=== PATIENT | male | born 1945 | race African-American/Black ===

== ENCOUNTER 2018-03-20 07:17 | Inpatient (IN) ==
[2018-03-20] MEDS ORDERED: GLUCAGON 1 MG VIAL IM PRN (09:49)
[2018-03-20] MEDS ORDERED: DEXTROSE 50% 25 GM/50 ML VIAL IV PRN (09:49)
[2018-03-20] MEDS ORDERED: HYDROcod/ACETAMIN 7.5-325 MG/15 ML UDCUP PO SCH (10:00)
[2018-03-20] MEDS: SODIUM CHLORIDE 0.9% 1,000 ML IV SCH (10:30)
[2018-03-20] MEDS ORDERED: HYDROcod/ACETAMIN 7.5-325 MG/15 ML UDCUP PO PRN (13:39)
[2018-03-20] MEDS ORDERED: INSULIN REGULAR 100 UNIT/ML ONE (21:26)
[2018-03-20] MEDS: INSULIN REGULAR 100 UNIT/ML SUBCUT SCH (21:31)
[2018-03-20] MEDS: CHLORHEXIDINE 0.12% ORAL RINSE 60 ML BOTTLE SWISH/SPIT SCH (22:12)
[2018-03-21 03:34] LABS: ABG Base Excess 3.7 MMOL/L (-2.5-2.5); ABG HCO3 27.7 MMOL/L (20-26); ABG Oxygen Saturation 98.1 % (95-100); ABG PCO2 42.8 MM HG (35-48); ABG PH 7.431 (7.35-7.45); ABG TCO2 24.8 MMOL/L (23-27); Allen Test Positive
[2018-03-21 04:34] LABS: Basophils % 0.3 % (0.0-0.8); Eosinophils # 0.1 10*3/uL (0.0-0.87); Eosinophils % 0.9 % (0.00-10.9); Hematocrit 38.7 VOL% (42.0-52.0); Hemoglobin 12.5 GM/DL (14.0-18.0); Immature Granulocytes % 0.2 %; Immature Granulocytes Absolute 0.02 #; Lymphocytes # 3.9 10*3/uL (1.4-4.0); Lymphocytes % 45.4 % (21.2-54.2); Mean Corpuscular HGB Conc 32.3 GM/DL (32-36); Mean Corpuscular Hemoglobin 30 PG (27-34); Mean Corpuscular Volume 93.7 FL (87-102); Mean Platelet Volume 12.1 FL (9.6-12.0); Monocytes # 0.7 10*3/uL (0.11-0.8); Monocytes % 7.6 % (1.7-12.7); Neutrophils # 3.9 10*3/uL (1.4-7.4); Neutrophils % 45.6 % (38.7-73.9); Platelet Count 171 T/CUMM (130-400); Red Blood Count 4.13 MC/CUMM (3.8-5.5); Red Cell Distribution Width 13.9 % (9.3-17.3); White Blood Count 8.7 T/CUMM (4-12)
[2018-03-21 04:52] LABS: Albumin 2.5 G/DL (3.4-5.0); Bilirubin,Total 0.9 MG/DL (0.2-1.0); Calcium 8.4 MG/DL (8.5-10.1); Osmolality,Calculated 279.7 MOS/KG (273-304); Potassium 3.6 MMOL/L (3.5-5.1); Total Protein 6.6 G/DL (6.4-8.3)
[2018-03-21] MEDS: INSULIN REGULAR 100 UNIT/ML SUBCUT SCH ×4 (08:45→22:06)
[2018-03-21] MEDS: ASPIRIN EC 325 MG TABLET PO SCH (08:46)
[2018-03-21] MEDS: GLIMEPIRIDE 4 MG TABLET PO SCH (08:46)
[2018-03-21] MEDS: VERAPAMIL 120 MG TABLET PO SCH (08:46)
[2018-03-21] MEDS: CHLORHEXIDINE 0.12% ORAL RINSE 60 ML BOTTLE SWISH/SPIT SCH ×2 (08:46→22:07)
[2018-03-21] MEDS: ATENOLOL 25 MG TABLET PO SCH (08:46)
[2018-03-21] MEDS: ATORVASTATIN 40 MG TABLET PO SCH (08:46)
[2018-03-21] MEDS: SODIUM CHLORIDE 0.9% 1,000 ML IV SCH (11:04)
[2018-03-21] MEDS ORDERED: LACTULOSE 20 GM/30 ML UDCUP PO PRN (15:33)
[2018-03-22] MEDS: INSULIN REGULAR 100 UNIT/ML SUBCUT SCH ×4 (08:33→21:51)
[2018-03-22] MEDS: ASPIRIN EC 325 MG TABLET PO SCH (08:38)
[2018-03-22] MEDS: CHLORHEXIDINE 0.12% ORAL RINSE 60 ML BOTTLE SWISH/SPIT SCH ×2 (08:38→21:51)
[2018-03-22] MEDS: ATENOLOL 25 MG TABLET PO SCH (08:38)
[2018-03-22] MEDS: GLIMEPIRIDE 4 MG TABLET PO SCH (08:38)
[2018-03-22] MEDS: VERAPAMIL 120 MG TABLET PO SCH (08:38)
[2018-03-22] MEDS: ATORVASTATIN 40 MG TABLET PO SCH (08:38)
[2018-03-22] MEDS ORDERED: CEFUROXIME INJ 1,500 MG in SYRINGE 1 EACH IV ONE (09:49)
[2018-03-22] MEDS: SODIUM CHLORIDE 0.9% 1,000 ML IV SCH (11:17)
[2018-03-22] MEDS: CHLORHEXIDINE 4% SOLN 118 ML BOTTLE TOP SCH ×2 (14:31→21:51)
[2018-03-23] MEDS ORDERED: PAPAVERINE 60 MG/2 ML VIAL ONE (04:21)
[2018-03-23] MEDS ORDERED: VANCOMYCIN 1,000 MG VIAL ONE (04:21)
[2018-03-23] MEDS ORDERED: PANTOPRAZOLE 40 MG VIAL IV ONE (05:00)
[2018-03-23] MEDS ORDERED: DIAZEPAM 5 MG TABLET PO ONE (05:00)
[2018-03-23] MEDS ORDERED: CEFUROXIME INJ 1,500 MG in SYRINGE 1 EACH IV ONE (05:00)
[2018-03-23] MEDS ORDERED: SUFentanil 250 MCG/5 ML AMP ONE (05:39)
[2018-03-23] MEDS ORDERED: MIDAZOLAM 10 MG/2 ML VIAL ONE (05:40)
[2018-03-23 07:46] LABS: ABG Base Excess 0.8 MMOL/L (-2.5-2.5); ABG HCO3 25.1 MMOL/L (20-26); ABG Oxygen Saturation 96.6 % (95-100); ABG PCO2 40.2 MM HG (35-48); ABG PH 7.409 (7.35-7.45); ABG PO2 90.3 MM HG (80-95); ABG TCO2 22.5 MMOL/L (23-27); Glucose Heart Surgery 185 MG/DL (74-106); Hematocrit Heart Surgery 37.4 PERCENT (42-52); Hemoglobin Heart Surgery 12.2 G/DL (14.0-18.0); Ionized Calcium Arterial 1.13 MMOL/L (1.21-1.46); PCO2 Patient Temp Arterial 40.2 MMHG; PH Patient Temp Arterial 7.409; PO2 Patient Temp Arterial 90.3 MM HG; Patient Temperature 37 CELCIUS; Sodium Heart/CVR 135 MMOL/L (135-145)
[2018-03-23 08:03] LABS: Apearance,Urine CLEAR (Clear); Bilirubin,Urine Negative (Negative); Blood, Urine Moderate mg/dL (Negative); Glucose,Urine (UA) Negative (Negative); Ketones,Urine Negative (Negative); Nitrite,Urine Negative (Negative); Protein,Urine Negative; RBC,Urine 7 /HPF (0-4); Urine Color Yellow (Yellow); Urine Specific Gravity 1.009 (1.001-1.035); Urine Urobilinogen < 2.0 EU/DL (0.2-1.0); WBC,Urine <1 /HPF (0-6)
[2018-03-23] MEDS ORDERED: EPINEPHrine 1 MG/10 ML SYRINGE ONE (08:35)
[2018-03-23] MEDS ORDERED: CALCIUM CHLORIDE 1,000 MG/10 ML SYRINGE IV ONE (08:35)
[2018-03-23] MEDS ORDERED: PHENYLEPHRINE DRIP 40 MG/250 ML PREMIX IV ONE (08:35)
[2018-03-23] MEDS ORDERED: ALBUMIN 5% 12.5 GM/250 ML VIAL IV ONE (08:35)
[2018-03-23] MEDS ORDERED: ATROPINE 1 MG/10 ML SYRINGE ONE (08:36)
[2018-03-23] MEDS ORDERED: POTASSIUM CHLORIDE RIDER 100 ML IV ONE (08:36)
[2018-03-23 09:14] LABS: Hematocrit Heart Surgery 29.1 PERCENT (42-52); Hemoglobin Heart Surgery 9.4 G/DL (14.0-18.0); PCO2 Patient Temp Venous 35.3 MM HG; PH Patient Temp Venous 7.471; PO2 Patient Temp Venous 40.1 MM HG; Potassium Heart/CVR 5.1 MMOL/L (3.5-5.1); VBG Base Excess 2.3 MEQ/L (0-4); VBG HCO3 26.2 MEQ/L (24-28); VBG Oxygen Saturation 81.8 %; VBG PCO2 38.9 MMHG (41-51); VBG PH 7.441; VBG PO2 46.1 MMHG (17-40)
[2018-03-23 09:45] LABS: Hematocrit Heart Surgery 30.5 PERCENT (42-52); Hemoglobin Heart Surgery 9.8 G/DL (14.0-18.0); PCO2 Patient Temp Venous 28.7 MM HG; PH Patient Temp Venous 7.543; PO2 Patient Temp Venous 39.4 MM HG; Potassium Heart/CVR 4.5 MMOL/L (3.5-5.1); VBG Base Excess 2.8 MEQ/L (0-4); VBG HCO3 26.7 MEQ/L (24-28); VBG Oxygen Saturation 86.8 %; VBG PCO2 33.1 MMHG (41-51); VBG PH 7.498; VBG PO2 48.5 MMHG (17-40)
[2018-03-23 10:21] LABS: Hematocrit Heart Surgery 29.3 PERCENT (42-52); Hemoglobin Heart Surgery 9.5 G/DL (14.0-18.0); PH Patient Temp Venous 7.533; PO2 Patient Temp Venous 35.3 MM HG; VBG Base Excess 2.3 MEQ/L (0-4); VBG HCO3 26.1 MEQ/L (24-28); VBG PCO2 31.9 MMHG (41-51); VBG PH 7.503; VBG PO2 40.7 MMHG (17-40)
[2018-03-23 10:44] LABS: Hematocrit Heart Surgery 29.6 PERCENT (42-52); Hemoglobin Heart Surgery 9.5 G/DL (14.0-18.0); PCO2 Patient Temp Venous 29.7 MM HG; PH Patient Temp Venous 7.525; PO2 Patient Temp Venous 40.3 MM HG; Potassium Heart/CVR 4.6 MMOL/L (3.5-5.1); VBG Base Excess 2.2 MEQ/L (0-4); VBG HCO3 26.1 MEQ/L (24-28); VBG Oxygen Saturation 79.2 %; VBG PCO2 29.7 MMHG (41-51); VBG PH 7.525; VBG PO2 40.3 MMHG (17-40)
[2018-03-23] MEDS ORDERED: THROMBIN TOPICAL (RECOMBINANT) 5,000 UNIT VIAL TOP ONE ×2 (10:48→12:00)
[2018-03-23 11:15] LABS: Hematocrit Heart Surgery 27.9 PERCENT (42-52); PCO2 Patient Temp Venous 31.3 MM HG; PH Patient Temp Venous 7.507; PO2 Patient Temp Venous 26.4 MM HG; Potassium Heart/CVR 4.7 MMOL/L (3.5-5.1); VBG Base Excess 2.1 MEQ/L (0-4); VBG HCO3 25.6 MEQ/L (24-28); VBG Oxygen Saturation 51.1 %; VBG PCO2 31.3 MMHG (41-51); VBG PH 7.507; VBG PO2 26.4 MMHG (17-40)
[2018-03-23 11:26] LABS: ABG Base Excess 0.4 MMOL/L (-2.5-2.5); ABG HCO3 24.8 MMOL/L (20-26); ABG PCO2 27.7 MM HG (35-48); ABG TCO2 20.6 MMOL/L (23-27); Glucose Heart Surgery 298 MG/DL (74-106); Hematocrit Heart Surgery 28.6 PERCENT (42-52); Hemoglobin Heart Surgery 9.2 G/DL (14.0-18.0); Ionized Calcium Arterial 1.13 MMOL/L (1.21-1.46); PCO2 Patient Temp Arterial 27.7 MMHG; Patient Temperature 37 CELCIUS; Potassium Heart/CVR 4.4 MMOL/L (3.5-5.1); Sodium Heart/CVR 133 MMOL/L (135-145)
[2018-03-23] MEDS ORDERED: MANNITOL 100 GM/500 ML BAG IV ONE (11:35)
[2018-03-23] MEDS ORDERED: ALBUMIN 25% 25 GM/100 ML VIAL IV ONE (11:36)
[2018-03-23] MEDS ORDERED: SODIUM BICARBONATE 50 MEQ/50 ML SYRINGE IV ONE (11:36)
[2018-03-23] MEDS ORDERED: methylPREDNISolone SOD SUC 1,000 MG/8 ML VIAL ONE (11:36)
[2018-03-23] MEDS ORDERED: MAGNESIUM SULFATE 10 GM/20 ML VIAL IV ONE (11:36)
[2018-03-23] MEDS ORDERED: HEPARIN 10,000 UNIT/10 ML VIAL ONE (11:36)
[2018-03-23] MEDS ORDERED: POTASSIUM CHLORIDE 20 MEQ/10 ML VIAL ONE (11:36)
[2018-03-23] MEDS ORDERED: DEXTROSE 5% KCL 20 MEQ 20 MEQ/1,000 ML BAG IV ONE (11:36)
[2018-03-23] MEDS ORDERED: PROTAMINE SULFATE 250 MG/25 ML VIAL IV ONE ×2 (11:36→13:20)
[2018-03-23] MEDS ORDERED: FUROSEMIDE 20 MG/2 ML VIAL ONE (11:36)
[2018-03-23 11:49] LABS: ABG Base Excess -0.3 MMOL/L (-2.5-2.5); ABG HCO3 24.2 MMOL/L (20-26); ABG Oxygen Saturation 98.5 % (95-100); ABG PCO2 38.5 MM HG (35-48); ABG PH 7.406 (7.35-7.45); ABG TCO2 22.1 MMOL/L (23-27); Glucose Heart Surgery 292 MG/DL (74-106); Hematocrit Heart Surgery 29.4 PERCENT (42-52); Hemoglobin Heart Surgery 9.5 G/DL (14.0-18.0); Ionized Calcium Arterial 1.04 MMOL/L (1.21-1.46); PCO2 Patient Temp Arterial 38.5 MMHG; PH Patient Temp Arterial 7.406; Patient Temperature 37 CELCIUS; Potassium Heart/CVR 3.8 MMOL/L (3.5-5.1); Sodium Heart/CVR 134 MMOL/L (135-145)
[2018-03-23] MEDS ORDERED: NITROGLYCERIN DRIP 50 MG/250 ML BOTTLE IV ONE ×2 (12:20→13:21)
[2018-03-23] MEDS ORDERED: DOBUTamine 500 MG/250 ML PREMIX IV ONE ×2 (12:20→13:20)
[2018-03-23] MEDS ORDERED: INSULIN REGULAR 100 UNIT/ML IV ONE (12:54)
[2018-03-23] MEDS ORDERED: ACETAMINOPHEN 650 MG SUPP RECTAL PRN (12:54)
[2018-03-23] MEDS ORDERED: CALCIUM CHLORIDE 1,000 MG/10 ML SYRINGE IV PRN (12:54)
[2018-03-23] MEDS ORDERED: DEXTROSE 50% 25 GM/50 ML SYRINGE IV PRN ×2 (12:54)
[2018-03-23] MEDS ORDERED: MAGNESIUM SULF RIDER 2 GM in PREMIX 1 EACH IV PRN (12:54)
[2018-03-23] MEDS ORDERED: LACTATED RINGERS 250 ML IV PRN (12:54)
[2018-03-23] MEDS ORDERED: MIDAZOLAM 10 MG/2 ML VIAL IV PRN (12:54)
[2018-03-23] MEDS ORDERED: PHENYLEPHRINE DRIP 40 MG/250 ML PREMIX IV PRN (12:54)
[2018-03-23] MEDS ORDERED: NITROPRUSSIDE 100 MG in DEXTROSE 5% 250 ML IV PRN (12:54)
[2018-03-23] MEDS ORDERED: ONDANSETRON 4 MG/2 ML VIAL IV PRN (12:54)
[2018-03-23] MEDS ORDERED: INSULIN REGULAR 100 UNIT/ML IV PRN (12:54)
[2018-03-23] MEDS ORDERED: VECURONIUM 10 MG VIAL IV PRN ×2 (12:54)
[2018-03-23] MEDS ORDERED: MORPHINE 4 MG/1 ML VIAL IV PRN (12:54)
[2018-03-23] MEDS ORDERED: MAGNESIUM SULF RIDER 4 GM in PREMIX 1 EACH IV PRN (12:54)
[2018-03-23] MEDS: INSULIN REGULAR DRIP 100 ML IV SCH (13:00)
[2018-03-23] MEDS ORDERED: DOBUTamine 500 MG/250 ML PREMIX IV PRN (13:00)
[2018-03-23] MEDS: NITROGLYCERIN DRIP 50 MG/250 ML BOTTLE IV PRN (13:00)
[2018-03-23] MEDS: SODIUM CHLORIDE 0.45% 1,000 ML IV SCH ×2 (13:00)
[2018-03-23] MEDS ORDERED: HEPARIN/NACL 0.9% 2 UNITS/ML 500 ML IV ONE (13:20)
[2018-03-23] MEDS ORDERED: SEVOFLURANE 1 UNIT/15 MINUTE INH ONE (13:20)
[2018-03-23] MEDS ORDERED: CALCIUM CHLORIDE 1,000 MG/10 ML VIAL IV ONE (13:20)
[2018-03-23] MEDS ORDERED: PHENYLEPHRINE DRIP 20 MG/250 ML PREMIX IV ONE (13:20)
[2018-03-23] MEDS ORDERED: VECURONIUM 10 MG VIAL IV ONE (13:21)
[2018-03-23] MEDS ORDERED: AMINOCAPROIC ACID 5,000 MG/20 ML VIAL ONE (13:21)
[2018-03-23] MEDS ORDERED: ETOMIDATE 40 MG/20 ML VIAL IV ONE (13:21)
[2018-03-23] MEDS ORDERED: MIDAZOLAM 2 MG/2 ML VIAL ONE (13:21)
[2018-03-23] MEDS ORDERED: LACTATED RINGERS 1,000 ML IV ONE (13:22)
[2018-03-23] MEDS ORDERED: PHENYLEPHRINE 1 MG/10 ML SYRINGE IV ONE (13:22)
[2018-03-23] MEDS ORDERED: SODIUM CHLORIDE 0.9% 1,000 ML IV ONE (13:22)
[2018-03-23 13:29] LABS: Basophils % 0.1 % (0.0-0.8); Eosinophils % 0.1 % (0.00-10.9); Hematocrit 25.7 VOL% (42.0-52.0); Hemoglobin 8.5 GM/DL (14.0-18.0); Immature Granulocytes % 0.5 %; Immature Granulocytes Absolute 0.05 #; Lymphocytes # 0.7 10*3/uL (1.4-4.0); Lymphocytes % 7.6 % (21.2-54.2); Mean Corpuscular HGB Conc 33.1 GM/DL (32-36); Mean Corpuscular Hemoglobin 32 PG (27-34); Mean Corpuscular Volume 95.2 FL (87-102); Mean Platelet Volume 11.6 FL (9.6-12.0); Monocytes # 0.3 10*3/uL (0.11-0.8); Neutrophils # 8.2 10*3/uL (1.4-7.4); Neutrophils % 88.7 % (38.7-73.9); Platelet Count 179 T/CUMM (130-400); Red Cell Distribution Width 13.9 % (9.3-17.3); White Blood Count 9.2 T/CUMM (4-12)
[2018-03-23 13:31] LABS: ABG Base Excess 0.1 MMOL/L (-2.5-2.5); ABG HCO3 24.5 MMOL/L (20-26); ABG Oxygen Saturation 96.1 % (95-100); ABG PCO2 42.2 MM HG (35-48); ABG PH 7.385 (7.35-7.45); ABG PO2 86.7 MM HG (80-95); ABG TCO2 22.8 MMOL/L (23-27); Glucose Heart Surgery 295 MG/DL (74-106); Hematocrit Heart Surgery 32.6 PERCENT (42-52); Hemoglobin Heart Surgery 10.6 G/DL (14.0-18.0); Potassium Heart/CVR 4.2 MMOL/L (3.5-5.1)
[2018-03-23 13:41] LABS: INR 1.1; PT Patient Result 11.5 SECS; Partial Thromboplastin Time 28.4 SECS (0-40)
[2018-03-23 13:57] LABS: Albumin 2.7 G/DL (3.4-5.0); Calcium 8.3 MG/DL (8.5-10.1); Osmolality,Calculated 288.5 MOS/KG (273-304); Potassium 4.4 MMOL/L (3.5-5.1); Total Protein 5.4 G/DL (6.4-8.3)
[2018-03-23] MEDS: KETOROLAC 30 MG/1 ML VIAL IV SCH ×2 (13:58→18:25)
[2018-03-23] MEDS: ALBUMIN 5% 12.5 GM in PREMIX 1 EACH IV PRN ×3 (14:00→19:32)
[2018-03-23] MEDS: MIDAZOLAM 2 MG/2 ML VIAL IV PRN ×2 (14:01→23:07)
[2018-03-23 14:32] LABS: CKMB % 4.4 %
[2018-03-23 14:36] LABS: ABG Base Excess -0.2 MMOL/L (-2.5-2.5); ABG HCO3 24.8 MMOL/L (20-26); ABG Oxygen Saturation 97.9 % (95-100); ABG PCO2 41.9 MM HG (35-48); ABG PO2 120.8 MM HG (80-95); ABG TCO2 26.1 MMOL/L (23-27); Glucose Heart Surgery 247 MG/DL (74-106); Hemoglobin Heart Surgery 8.7 G/DL (14.0-18.0); Potassium Heart/CVR 3.7 MMOL/L (3.5-5.1)
[2018-03-23 14:45] LABS: Troponin I 4.33 NG/ML (0.00-0.045)
[2018-03-23 15:26] LABS: ABG Base Excess -0.3 MMOL/L (-2.5-2.5); ABG HCO3 24.2 MMOL/L (20-26); ABG Oxygen Saturation 99.1 % (95-100); ABG PCO2 42.3 MM HG (35-48); ABG PH 7.376 (7.35-7.45); ABG TCO2 23.4 MMOL/L (23-27); Glucose Heart Surgery 241 MG/DL (74-106); Hematocrit Heart Surgery 23.2 PERCENT (42-52); Hemoglobin Heart Surgery 7.4 G/DL (14.0-18.0); Potassium Heart/CVR 3.8 MMOL/L (3.5-5.1)
[2018-03-23] MEDS: POTASSIUM CHLORIDE RIDER 20 MEQ in PREMIX 1 EACH IV PRN (15:30)
[2018-03-23] MEDS ORDERED: PROTAMINE SULFATE 50 MG/5 ML VIAL IV ONE ×2 (16:09→16:10)
[2018-03-23] MEDS: POTASSIUM CHLORIDE RIDER 10 MEQ in PREMIX 1 EACH IV PRN (16:40)
[2018-03-23] MEDS ORDERED: PROPOFOL 1,000 MG/100 ML BOTTLE IV ONE (16:52)
[2018-03-23] MEDS: PROPOFOL 1,000 MG/100 ML BOTTLE IV SCH (17:00)
[2018-03-23 18:22] LABS: ABG Base Excess 0.3 MMOL/L (-2.5-2.5); ABG HCO3 24.7 MMOL/L (20-26); ABG Oxygen Saturation 98.3 % (95-100); ABG PCO2 41.4 MM HG (35-48); ABG PH 7.393 (7.35-7.45); ABG TCO2 22.8 MMOL/L (23-27); Glucose Heart Surgery 162 MG/DL (74-106); Hematocrit Heart Surgery 32.6 PERCENT (42-52); Hemoglobin Heart Surgery 10.6 G/DL (14.0-18.0); Potassium Heart/CVR 4.3 MMOL/L (3.5-5.1)
[2018-03-23 20:01] LABS: ABG Base Excess 1.3 MMOL/L (-2.5-2.5); ABG HCO3 25.6 MMOL/L (20-26); ABG Oxygen Saturation 97.5 % (95-100); ABG PCO2 41.8 MM HG (35-48); ABG PH 7.404 (7.35-7.45); ABG PO2 92.4 MM HG (80-95); Glucose Heart Surgery 109 MG/DL (74-106); Hematocrit Heart Surgery 28.8 PERCENT (42-52); Hemoglobin Heart Surgery 9.3 G/DL (14.0-18.0); Potassium Heart/CVR 4.2 MMOL/L (3.5-5.1)
[2018-03-23 20:48] LABS: CKMB % 3.7 %
[2018-03-23 20:50] LABS: Troponin I 3.92 NG/ML (0.00-0.045)
[2018-03-23 21:47] LABS: ABG Base Excess 1.1 MMOL/L (-2.5-2.5); ABG HCO3 25.4 MMOL/L (20-26); ABG Oxygen Saturation 96.1 % (95-100); ABG PCO2 40.7 MM HG (35-48); ABG PO2 79.3 MM HG (80-95); ABG TCO2 23.4 MMOL/L (23-27); Glucose Heart Surgery 159 MG/DL (74-106); Hematocrit Heart Surgery 31.8 PERCENT (42-52); Hemoglobin Heart Surgery 10.3 G/DL (14.0-18.0); Potassium Heart/CVR 4.5 MMOL/L (3.5-5.1)
[2018-03-23] MEDS ORDERED: FUROSEMIDE 40 MG/4 ML VIAL IV ONE (22:02)
[2018-03-23] MEDS: CHLORHEXIDINE 0.12% ORAL RINSE 60 ML BOTTLE SWISH/SPIT SCH (22:20)
[2018-03-23] MEDS: CEFUROXIME INJ 1,500 MG in SYRINGE 1 EACH IV SCH (22:21)
[2018-03-23 22:50] LABS: ABG Base Excess 1.1 MMOL/L (-2.5-2.5); ABG HCO3 25.4 MMOL/L (20-26); ABG Oxygen Saturation 95.6 % (95-100); ABG PCO2 41.5 MM HG (35-48); ABG PH 7.404 (7.35-7.45); ABG TCO2 23.5 MMOL/L (23-27); Glucose Heart Surgery 167 MG/DL (74-106); Hematocrit Heart Surgery 31.9 PERCENT (42-52); Hemoglobin Heart Surgery 10.3 G/DL (14.0-18.0); Potassium Heart/CVR 4.2 MMOL/L (3.5-5.1)
[2018-03-23] MEDS: ALBUTEROL/IPRATROPIUM 3 ML NEB RESP TX SCH (22:58)
[2018-03-23 23:58] LABS: ABG Base Excess 2.6 MMOL/L (-2.5-2.5); ABG HCO3 26.7 MMOL/L (20-26); ABG Oxygen Saturation 98.3 % (95-100); ABG PCO2 38.9 MM HG (35-48); ABG PH 7.445 (7.35-7.45); ABG TCO2 24.3 MMOL/L (23-27); Glucose Heart Surgery 164 MG/DL (74-106); Hematocrit Heart Surgery 30.3 PERCENT (42-52); Hemoglobin Heart Surgery 9.8 G/DL (14.0-18.0); Potassium Heart/CVR 3.9 MMOL/L (3.5-5.1)
[2018-03-24] MEDS ORDERED: FUROSEMIDE 40 MG/4 ML VIAL IV ONE ×3 (00:01→15:34)
[2018-03-24] MEDS: POTASSIUM CHLORIDE RIDER 20 MEQ in PREMIX 1 EACH IV PRN ×2 (00:08→08:23)
[2018-03-24] MEDS: MORPHINE 10 MG/1 ML VIAL IV PRN ×3 (00:32→13:45)
[2018-03-24] MEDS: KETOROLAC 30 MG/1 ML VIAL IV SCH ×4 (00:34→21:19)
[2018-03-24] MEDS: POTASSIUM CHLORIDE RIDER 10 MEQ in PREMIX 1 EACH IV PRN (00:39)
[2018-03-24] MEDS: ALBUMIN 5% 12.5 GM in PREMIX 1 EACH IV PRN ×2 (01:17→03:50)
[2018-03-24] MEDS ORDERED: NITROPRUSSIDE 50 MG/2 ML VIAL ONE ×2 (01:50→01:51)
[2018-03-24] MEDS: PROPOFOL 1,000 MG/100 ML BOTTLE IV SCH ×2 (02:01→09:40)
[2018-03-24 02:03] LABS: ABG HCO3 26.2 MMOL/L (20-26); ABG Oxygen Saturation 99.1 % (95-100); ABG PCO2 40.7 MM HG (35-48); ABG PH 7.423 (7.35-7.45); ABG TCO2 24.2 MMOL/L (23-27); Glucose Heart Surgery 124 MG/DL (74-106); Hemoglobin Heart Surgery 9.7 G/DL (14.0-18.0); Potassium Heart/CVR 4.1 MMOL/L (3.5-5.1)
[2018-03-24] MEDS: ALBUTEROL/IPRATROPIUM 3 ML NEB RESP TX SCH ×6 (03:10→22:40)
[2018-03-24 03:51] LABS: ABG Base Excess 1.7 MMOL/L (-2.5-2.5); ABG HCO3 25.1 MMOL/L (20-26); ABG Oxygen Saturation 98.1 % (95-100); ABG PCO2 34.5 MM HG (35-48); ABG PH 7.479 (7.35-7.45); ABG PO2 135.4 MM HG (80-95); ABG TCO2 26.1 MMOL/L (23-27); Glucose Heart Surgery 76 MG/DL (74-106); Hemoglobin Heart Surgery 9.4 G/DL (14.0-18.0); Potassium Heart/CVR 4.1 MMOL/L (3.5-5.1)
[2018-03-24 04:03] LABS: Basophils % 0.1 % (0.0-0.8); Hematocrit 26.2 VOL% (42.0-52.0); Hemoglobin 8.6 GM/DL (14.0-18.0); Immature Granulocytes % 0.6 %; Immature Granulocytes Absolute 0.05 #; Lymphocytes # 0.7 10*3/uL (1.4-4.0); Lymphocytes % 7.7 % (21.2-54.2); Mean Corpuscular HGB Conc 32.8 GM/DL (32-36); Mean Corpuscular Hemoglobin 30 PG (27-34); Monocytes # 0.6 10*3/uL (0.11-0.8); Monocytes % 7.1 % (1.7-12.7); Neutrophils # 7.3 10*3/uL (1.4-7.4); Neutrophils % 84.5 % (38.7-73.9); Platelet Count 134 T/CUMM (130-400); Red Blood Count 2.91 MC/CUMM (3.8-5.5); Red Cell Distribution Width 17.2 % (9.3-17.3); White Blood Count 8.6 T/CUMM (4-12)
[2018-03-24 04:28] LABS: Albumin 2.9 G/DL (3.4-5.0); Bilirubin,Direct 0.15 MG/DL (0.0-0.20); Bilirubin,Total 0.6 MG/DL (0.2-1.0); Calcium 7.8 MG/DL (8.5-10.1); Osmolality,Calculated 283.1 MOS/KG (273-304); Potassium 4.2 MMOL/L (3.5-5.1); Total Protein 5.5 G/DL (6.4-8.3)
[2018-03-24 04:30] LABS: CKMB % 5.3 %
[2018-03-24 04:45] LABS: Troponin I 6.45 NG/ML (0.00-0.045)
[2018-03-24 08:02] LABS: ABG Base Excess 0.7 MMOL/L (-2.5-2.5); ABG HCO3 25.1 MMOL/L (20-26); ABG PCO2 38.9 MM HG (35-48); ABG PH 7.418 (7.35-7.45); ABG TCO2 22.8 MMOL/L (23-27); Glucose Heart Surgery 147 MG/DL (74-106); Hematocrit Heart Surgery 30.8 PERCENT (42-52)
[2018-03-24] MEDS: CEFUROXIME INJ 1,500 MG in SYRINGE 1 EACH IV SCH ×2 (08:04→21:20)
[2018-03-24] MEDS: CHLORHEXIDINE 0.12% ORAL RINSE 60 ML BOTTLE SWISH/SPIT SCH ×3 (08:59→21:20)
[2018-03-24 11:46] LABS: ABG Base Excess 0.3 MMOL/L (-2.5-2.5); ABG HCO3 24.7 MMOL/L (20-26); ABG PCO2 43.4 MM HG (35-48); ABG PH 7.379 (7.35-7.45); ABG TCO2 23.3 MMOL/L (23-27); Glucose Heart Surgery 152 MG/DL (74-106); Hematocrit Heart Surgery 31.1 PERCENT (42-52); Potassium Heart/CVR 4.3 MMOL/L (3.5-5.1)
[2018-03-24 14:13] LABS: CKMB % 5.8 %
[2018-03-24 14:16] LABS: Troponin I 8.2 NG/ML (0.00-0.045)
[2018-03-24] MEDS: INSULIN REGULAR DRIP 100 ML IV SCH (14:17)
[2018-03-24] MEDS: SODIUM CHLORIDE 0.45% 1,000 ML IV SCH ×2 (14:18)
[2018-03-24 15:07] LABS: ABG Base Excess 0.9 MMOL/L (-2.5-2.5); ABG HCO3 25.7 MMOL/L (20-26); ABG Oxygen Saturation 91.4 % (95-100); ABG PCO2 41.5 MM HG (35-48); ABG PH 7.409 (7.35-7.45); ABG PO2 65.5 MM HG (80-95); ABG TCO2 26.9 MMOL/L (23-27); Glucose Heart Surgery 168 MG/DL (74-106); Hemoglobin Heart Surgery 11.6 G/DL (14.0-18.0); Potassium Heart/CVR 4.3 MMOL/L (3.5-5.1)
[2018-03-24] MEDS: INSULIN REGULAR 100 UNIT/ML SUBCUT SCH ×4 (16:10→21:20)
[2018-03-24] MEDS: SODIUM CHLORIDE 0.9% 1,000 ML IV SCH (16:29)
[2018-03-24] MEDS: ATENOLOL 25 MG TABLET PO SCH (16:29)
[2018-03-24] MEDS: ATORVASTATIN 40 MG TABLET PO SCH (16:30)
[2018-03-24] MEDS: VERAPAMIL 120 MG TABLET PO SCH (16:30)
[2018-03-24] MEDS: GLIMEPIRIDE 4 MG TABLET PO SCH (16:30)
[2018-03-24] MEDS: CHLORHEXIDINE 4% SOLN 118 ML BOTTLE TOP SCH (16:30)
[2018-03-24] MEDS: ASPIRIN EC 325 MG TABLET PO SCH (16:30)
[2018-03-24] MEDS: cloNIDine 0.1 MG TABLET PO SCH (21:20)
[2018-03-25] MEDS: INSULIN REGULAR 100 UNIT/ML SUBCUT SCH ×6 (00:18→20:17)
[2018-03-25] MEDS: ALBUTEROL/IPRATROPIUM 3 ML NEB RESP TX SCH ×6 (02:29→23:52)
[2018-03-25] MEDS: SODIUM CHLORIDE 0.45% 1,000 ML IV SCH ×4 (02:35→14:37)
[2018-03-25 03:41] LABS: ABG Base Excess 2.5 MMOL/L (-2.5-2.5); ABG HCO3 26.9 MMOL/L (20-26); ABG Oxygen Saturation 91.3 % (95-100); ABG PCO2 40.9 MM HG (35-48); ABG PH 7.436 (7.35-7.45); ABG PO2 65.1 MM HG (80-95); ABG TCO2 28.2 MMOL/L (23-27)
[2018-03-25 04:13] LABS: Basophils % 0.2 % (0.0-0.8); Hematocrit 28.1 VOL% (42.0-52.0); Hemoglobin 9.2 GM/DL (14.0-18.0); Immature Granulocytes % 0.4 %; Immature Granulocytes Absolute 0.04 #; Lymphocytes # 1.4 10*3/uL (1.4-4.0); Lymphocytes % 12.3 % (21.2-54.2); Mean Corpuscular HGB Conc 32.7 GM/DL (32-36); Mean Corpuscular Hemoglobin 30 PG (27-34); Mean Corpuscular Volume 90.4 FL (87-102); Mean Platelet Volume 12.3 FL (9.6-12.0); Monocytes # 0.9 10*3/uL (0.11-0.8); Monocytes % 7.7 % (1.7-12.7); Neutrophils % 79.4 % (38.7-73.9); Platelet Count 133 T/CUMM (130-400); Red Blood Count 3.11 MC/CUMM (3.8-5.5); Red Cell Distribution Width 16.9 % (9.3-17.3); White Blood Count 11.4 T/CUMM (4-12)
[2018-03-25 04:30] LABS: Albumin 2.8 G/DL (3.4-5.0); Bilirubin,Direct 0.14 MG/DL (0.0-0.20); Bilirubin,Total 1.3 MG/DL (0.2-1.0); Calcium 7.5 MG/DL (8.5-10.1); Osmolality,Calculated 291.1 MOS/KG (273-304); Potassium 3.9 MMOL/L (3.5-5.1); Total Protein 5.7 G/DL (6.4-8.3)
[2018-03-25] MEDS: MORPHINE 10 MG/1 ML VIAL IV PRN ×3 (04:44→15:32)
[2018-03-25] MEDS: POTASSIUM CHLORIDE RIDER 20 MEQ in PREMIX 1 EACH IV PRN ×2 (07:00→12:45)
[2018-03-25] MEDS: POTASSIUM CHLORIDE RIDER 10 MEQ in PREMIX 1 EACH IV PRN (07:34)
[2018-03-25] MEDS: ATENOLOL 25 MG TABLET PO SCH (08:30)
[2018-03-25] MEDS: CHLORHEXIDINE 0.12% ORAL RINSE 60 ML BOTTLE SWISH/SPIT SCH ×2 (08:30→20:17)
[2018-03-25] MEDS: cloNIDine 0.1 MG TABLET PO SCH ×3 (08:30→20:17)
[2018-03-25] MEDS: VERAPAMIL 120 MG TABLET PO SCH (08:30)
[2018-03-25] MEDS: ATORVASTATIN 40 MG TABLET PO SCH (08:30)
[2018-03-25] MEDS ORDERED: FUROSEMIDE 40 MG/4 ML VIAL IV ONE ×2 (14:13)
[2018-03-25] MEDS: NITROGLYCERIN DRIP 50 MG/250 ML BOTTLE IV PRN (15:14)
[2018-03-25] MEDS ORDERED: HEPARIN/NACL 0.9% 2 UNITS/ML 500 ML IV ONE (16:17)
[2018-03-26] MEDS: INSULIN REGULAR 100 UNIT/ML SUBCUT SCH ×4 (00:13→23:02)
[2018-03-26] MEDS: MORPHINE 10 MG/1 ML VIAL IV PRN (02:45)
[2018-03-26] MEDS: ALBUTEROL/IPRATROPIUM 3 ML NEB RESP TX SCH ×5 (03:48→18:55)
[2018-03-26 03:54] LABS: Basophils % 0.1 % (0.0-0.8); Hematocrit 28.2 VOL% (42.0-52.0); Hemoglobin 9.2 GM/DL (14.0-18.0); Immature Granulocytes % 0.7 %; Immature Granulocytes Absolute 0.09 #; Lymphocytes # 1.1 10*3/uL (1.4-4.0); Lymphocytes % 8.6 % (21.2-54.2); Mean Corpuscular HGB Conc 32.6 GM/DL (32-36); Mean Corpuscular Hemoglobin 30 PG (27-34); Mean Corpuscular Volume 92.2 FL (87-102); Mean Platelet Volume 11.6 FL (9.6-12.0); Monocytes # 0.9 10*3/uL (0.11-0.8); Monocytes % 7.1 % (1.7-12.7); Neutrophils # 10.3 10*3/uL (1.4-7.4); Neutrophils % 83.5 % (38.7-73.9); Platelet Count 118 T/CUMM (130-400); Red Blood Count 3.06 MC/CUMM (3.8-5.5); Red Cell Distribution Width 16.3 % (9.3-17.3); White Blood Count 12.4 T/CUMM (4-12)
[2018-03-26 04:21] LABS: Albumin 2.7 G/DL (3.4-5.0); Bilirubin,Direct 0.2 MG/DL (0.0-0.20); Bilirubin,Total 0.5 MG/DL (0.2-1.0); Calcium 7.5 MG/DL (8.5-10.1); Osmolality,Calculated 282.7 MOS/KG (273-304); Potassium 4.6 MMOL/L (3.5-5.1); Total Protein 5.7 G/DL (6.4-8.3)
[2018-03-26 04:39] LABS: Lymphocytes 10 % (20-55); Platelet Estimate Decreased; Segmented Neutrophils 83 % (50-85); Total Cells Counted 100
[2018-03-26] MEDS: ATENOLOL 25 MG TABLET PO SCH ×2 (07:21→08:38)
[2018-03-26] MEDS: GLIMEPIRIDE 4 MG TABLET PO SCH (07:21)
[2018-03-26] MEDS: cloNIDine 0.1 MG TABLET PO SCH ×4 (07:21→23:02)
[2018-03-26] MEDS: ATORVASTATIN 40 MG TABLET PO SCH ×2 (07:22→08:38)
[2018-03-26] MEDS: VERAPAMIL 120 MG TABLET PO SCH ×2 (07:22→08:38)
[2018-03-26] MEDS: CHLORHEXIDINE 0.12% ORAL RINSE 60 ML BOTTLE SWISH/SPIT SCH ×3 (08:38→23:02)
[2018-03-26] MEDS ORDERED: MAGNESIUM HYDROXIDE SUSP 30 ML UDCUP PO PRN (10:38)
[2018-03-26] MEDS ORDERED: MAGNESIUM SULF RIDER 4 GM in PREMIX 1 EACH IV PRN (10:38)
[2018-03-26] MEDS ORDERED: ACETAMINOPHEN 325 MG TABLET PO PRN (10:38)
[2018-03-26] MEDS ORDERED: GLUCAGON 1 MG VIAL IM PRN ×2 (10:38)
[2018-03-26] MEDS ORDERED: SODIUM CHLOR 0.45% KCL 20 MEQ 20 MEQ/1,000 ML BAG IV SCH (10:38)
[2018-03-26] MEDS ORDERED: ONDANSETRON 4 MG/2 ML VIAL IV PRN (10:38)
[2018-03-26] MEDS ORDERED: MAGNESIUM SULF RIDER 2 GM in PREMIX 1 EACH IV PRN (10:38)
[2018-03-26] MEDS ORDERED: ALUMINUM/MAGNES/SIMETH MAX STR 30 ML UDCUP PO PRN (10:38)
[2018-03-26] MEDS ORDERED: DEXTROSE 50% 25 GM/50 ML VIAL IV PRN ×2 (10:38)
[2018-03-26] MEDS ORDERED: ZALEPLON 5 MG CAPSULE PO PRN (10:38)
[2018-03-26] MEDS ORDERED: KETOROLAC 30 MG/1 ML VIAL IV PRN (10:38)
[2018-03-26] MEDS ORDERED: POTASSIUM CHLORIDE 20 MEQ TABLET PO PRN (10:38)
[2018-03-26] MEDS: DOCUSATE SODIUM 100 MG CAPSULE PO SCH (11:38)
[2018-03-26] MEDS: ASPIRIN EC 325 MG TABLET PO SCH (11:38)
[2018-03-26] MEDS: PANTOPRAZOLE 40 MG TABLET PO SCH (11:38)
[2018-03-26] MEDS: FERROUS SULFATE 325 MG TABLET PO SCH (11:38)
[2018-03-27] MEDS: ALBUTEROL/IPRATROPIUM 3 ML NEB RESP TX SCH ×7 (00:37→22:54)
[2018-03-27 04:37] LABS: Basophils % 0.2 % (0.0-0.8); Eosinophils % 0.1 % (0.00-10.9); Hematocrit 29.4 VOL% (42.0-52.0); Hemoglobin 9.3 GM/DL (14.0-18.0); Immature Granulocytes % 0.6 %; Immature Granulocytes Absolute 0.07 #; Lymphocytes # 1.6 10*3/uL (1.4-4.0); Lymphocytes % 13.2 % (21.2-54.2); Mean Corpuscular HGB Conc 31.6 GM/DL (32-36); Mean Corpuscular Hemoglobin 30 PG (27-34); Mean Corpuscular Volume 93.9 FL (87-102); Mean Platelet Volume 11.9 FL (9.6-12.0); Monocytes # 0.8 10*3/uL (0.11-0.8); Monocytes % 6.7 % (1.7-12.7); NRBC # 0.02 10*3/uL; Neutrophils # 9.4 10*3/uL (1.4-7.4); Neutrophils % 79.2 % (38.7-73.9); Platelet Count 143 T/CUMM (130-400); Red Blood Count 3.13 MC/CUMM (3.8-5.5); Red Cell Distribution Width 15.9 % (9.3-17.3); White Blood Count 11.9 T/CUMM (4-12)
[2018-03-27 04:54] LABS: Alanine Aminotransferase 21 U/L (16-61); Albumin 2.5 G/DL (3.4-5.0); Alkaline Phosphatase 77 U/L (45-117); Aspartate Amino Transferase 20 U/L (0-37); Bilirubin,Indirect 0.7 MG/DL (0.0-1.0); Blood Urea Nitrogen 23 MG/DL (7-18); Calcium 8.3 MG/DL (8.5-10.1); Glucose 164 MG/DL (74-106); Osmolality,Calculated 280.8 MOS/KG (273-304); Potassium 4.4 MMOL/L (3.5-5.1); Sodium 137 MMOL/L (136-145); Total Protein 6.1 G/DL (6.4-8.3)
[2018-03-27] MEDS ORDERED: FUROSEMIDE 40 MG/4 ML VIAL IV ONE (06:00)
[2018-03-27] MEDS: GLIMEPIRIDE 4 MG TABLET PO SCH (09:38)
[2018-03-27] MEDS: INSULIN REGULAR 100 UNIT/ML SUBCUT SCH ×3 (09:38→15:42)
[2018-03-27] MEDS: PANTOPRAZOLE 40 MG TABLET PO SCH (09:38)
[2018-03-27] MEDS: FERROUS SULFATE 325 MG TABLET PO SCH (09:38)
[2018-03-27] MEDS: DOCUSATE SODIUM 100 MG CAPSULE PO SCH (09:38)
[2018-03-27] MEDS: cloNIDine 0.1 MG TABLET PO SCH ×2 (09:38→15:51)
[2018-03-27] MEDS: ATENOLOL 25 MG TABLET PO SCH (09:38)
[2018-03-27] MEDS: ATORVASTATIN 40 MG TABLET PO SCH (09:38)
[2018-03-27] MEDS: ASPIRIN EC 325 MG TABLET PO SCH (09:38)
[2018-03-27] MEDS: VERAPAMIL 120 MG TABLET PO SCH (09:38)
[2018-03-27] MEDS: CHLORHEXIDINE 0.12% ORAL RINSE 60 ML BOTTLE SWISH/SPIT SCH (09:39)
[2018-03-27] MEDS: oxyCODONE/ACETAMINOPHEN 5-325 MG TABLET PO PRN (11:39)
[2018-03-28] MEDS: INSULIN REGULAR 100 UNIT/ML SUBCUT SCH ×5 (00:18→21:19)
[2018-03-28] MEDS: CHLORHEXIDINE 0.12% ORAL RINSE 60 ML BOTTLE SWISH/SPIT SCH ×3 (01:10→21:23)
[2018-03-28] MEDS: cloNIDine 0.1 MG TABLET PO SCH ×4 (01:10→21:20)
[2018-03-28] MEDS: ALBUTEROL/IPRATROPIUM 3 ML NEB RESP TX SCH ×5 (03:06→20:14)
[2018-03-28 06:30] LABS: Basophils % 0.3 % (0.0-0.8); Eosinophils # 0.1 10*3/uL (0.0-0.87); Eosinophils % 0.8 % (0.00-10.9); Hematocrit 29.8 VOL% (42.0-52.0); Hemoglobin 9.5 GM/DL (14.0-18.0); Immature Granulocytes % 0.5 %; Immature Granulocytes Absolute 0.05 #; Lymphocytes # 2.7 10*3/uL (1.4-4.0); Lymphocytes % 24.7 % (21.2-54.2); Mean Corpuscular HGB Conc 31.9 GM/DL (32-36); Mean Corpuscular Hemoglobin 30 PG (27-34); Mean Corpuscular Volume 93.1 FL (87-102); Mean Platelet Volume 12.1 FL (9.6-12.0); Monocytes # 0.8 10*3/uL (0.11-0.8); Monocytes % 6.8 % (1.7-12.7); NRBC # 0.02 10*3/uL; Neutrophils # 7.3 10*3/uL (1.4-7.4); Neutrophils % 66.9 % (38.7-73.9); Platelet Count 173 T/CUMM (130-400); Red Cell Distribution Width 15.5 % (9.3-17.3)
[2018-03-28 06:54] LABS: Alanine Aminotransferase 46 U/L (16-61); Albumin 2.4 G/DL (3.4-5.0); Alkaline Phosphatase 107 U/L (45-117); Aspartate Amino Transferase 37 U/L (0-37); Bilirubin,Indirect 0.7 MG/DL (0.0-1.0); Blood Urea Nitrogen 24 MG/DL (7-18); Calcium 8.4 MG/DL (8.5-10.1); Glucose 131 MG/DL (74-106); Osmolality,Calculated 282.5 MOS/KG (273-304); Potassium 4.1 MMOL/L (3.5-5.1); Sodium 139 MMOL/L (136-145)
[2018-03-28] MEDS: VERAPAMIL 120 MG TABLET PO SCH (08:54)
[2018-03-28] MEDS: PANTOPRAZOLE 40 MG TABLET PO SCH (08:54)
[2018-03-28] MEDS: FERROUS SULFATE 325 MG TABLET PO SCH (08:54)
[2018-03-28] MEDS: ATORVASTATIN 40 MG TABLET PO SCH (08:54)
[2018-03-28] MEDS: ASPIRIN EC 325 MG TABLET PO SCH (08:54)
[2018-03-28] MEDS: ATENOLOL 25 MG TABLET PO SCH (08:54)
[2018-03-28] MEDS: DOCUSATE SODIUM 100 MG CAPSULE PO SCH (08:54)
[2018-03-28] MEDS: GLIMEPIRIDE 4 MG TABLET PO SCH (08:54)
[2018-03-28] MEDS: oxyCODONE/ACETAMINOPHEN 5-325 MG TABLET PO PRN (17:10)
[2018-03-29] MEDS: ALBUTEROL/IPRATROPIUM 3 ML NEB RESP TX SCH ×7 (00:28→23:50)
[2018-03-29] MEDS: INSULIN REGULAR 100 UNIT/ML SUBCUT SCH ×4 (08:04→21:02)
[2018-03-29] MEDS: GLIMEPIRIDE 4 MG TABLET PO SCH (08:46)
[2018-03-29] MEDS: ASPIRIN EC 325 MG TABLET PO SCH (08:46)
[2018-03-29] MEDS: DOCUSATE SODIUM 100 MG CAPSULE PO SCH (08:46)
[2018-03-29] MEDS: ATENOLOL 25 MG TABLET PO SCH (08:46)
[2018-03-29] MEDS: VERAPAMIL 120 MG TABLET PO SCH (08:46)
[2018-03-29] MEDS: oxyCODONE/ACETAMINOPHEN 5-325 MG TABLET PO PRN (08:46)
[2018-03-29] MEDS: cloNIDine 0.1 MG TABLET PO SCH ×3 (08:46→21:02)
[2018-03-29] MEDS: FERROUS SULFATE 325 MG TABLET PO SCH (08:46)
[2018-03-29] MEDS: ATORVASTATIN 40 MG TABLET PO SCH (08:46)
[2018-03-29] MEDS: PANTOPRAZOLE 40 MG TABLET PO SCH (08:47)
[2018-03-29] MEDS: CHLORHEXIDINE 0.12% ORAL RINSE 60 ML BOTTLE SWISH/SPIT SCH ×2 (08:47→21:02)
[2018-03-30] MEDS: ALBUTEROL/IPRATROPIUM 3 ML NEB RESP TX SCH ×6 (03:34→23:15)
[2018-03-30 06:50] LABS: Basophils % 0.4 % (0.0-0.8); Eosinophils # 0.1 10*3/uL (0.0-0.87); Eosinophils % 0.8 % (0.00-10.9); Hematocrit 28.1 VOL% (42.0-52.0); Hemoglobin 8.9 GM/DL (14.0-18.0); Immature Granulocytes % 0.8 %; Immature Granulocytes Absolute 0.07 #; Lymphocytes # 2.4 10*3/uL (1.4-4.0); Lymphocytes % 26.4 % (21.2-54.2); Mean Corpuscular HGB Conc 31.7 GM/DL (32-36); Mean Corpuscular Hemoglobin 30 PG (27-34); Mean Corpuscular Volume 94.3 FL (87-102); Mean Platelet Volume 11.3 FL (9.6-12.0); Monocytes # 0.7 10*3/uL (0.11-0.8); Monocytes % 7.5 % (1.7-12.7); Neutrophils # 5.7 10*3/uL (1.4-7.4); Neutrophils % 64.1 % (38.7-73.9); Platelet Count 197 T/CUMM (130-400); Red Blood Count 2.98 MC/CUMM (3.8-5.5); Red Cell Distribution Width 15.7 % (9.3-17.3)
[2018-03-30 07:03] LABS: Alanine Aminotransferase 50 U/L (16-61); Albumin 2.2 G/DL (3.4-5.0); Alkaline Phosphatase 121 U/L (45-117); Aspartate Amino Transferase 29 U/L (0-37); Bilirubin,Indirect 0.4 MG/DL (0.0-1.0); Blood Urea Nitrogen 19 MG/DL (7-18); Calcium 8.4 MG/DL (8.5-10.1); Glucose 113 MG/DL (74-106); Osmolality,Calculated 281.4 MOS/KG (273-304); Potassium 4.5 MMOL/L (3.5-5.1); Sodium 140 MMOL/L (136-145); Total Protein 5.7 G/DL (6.4-8.3); Troponin I 0.572 NG/ML (0.00-0.045)
[2018-03-30] MEDS: INSULIN REGULAR 100 UNIT/ML SUBCUT SCH ×4 (08:39→20:49)
[2018-03-30] MEDS: PANTOPRAZOLE 40 MG TABLET PO SCH (08:40)
[2018-03-30] MEDS: FERROUS SULFATE 325 MG TABLET PO SCH (08:40)
[2018-03-30] MEDS: ATENOLOL 25 MG TABLET PO SCH (08:40)
[2018-03-30] MEDS: GLIMEPIRIDE 4 MG TABLET PO SCH (08:40)
[2018-03-30] MEDS: DOCUSATE SODIUM 100 MG CAPSULE PO SCH (08:40)
[2018-03-30] MEDS: VERAPAMIL 120 MG TABLET PO SCH (08:40)
[2018-03-30] MEDS: cloNIDine 0.1 MG TABLET PO SCH ×2 (08:40→15:24)
[2018-03-30] MEDS: CHLORHEXIDINE 0.12% ORAL RINSE 60 ML BOTTLE SWISH/SPIT SCH ×2 (08:40→21:00)
[2018-03-30] MEDS: ASPIRIN EC 325 MG TABLET PO SCH (08:40)
[2018-03-30] MEDS: ATORVASTATIN 40 MG TABLET PO SCH (08:40)
[2018-03-30] MEDS: oxyCODONE/ACETAMINOPHEN 5-325 MG TABLET PO PRN ×2 (12:22→19:26)
[2018-03-30] MEDS ORDERED: VERAPAMIL 80 MG TABLET PO ONE (19:58)
[2018-03-31] MEDS: ALBUTEROL/IPRATROPIUM 3 ML NEB RESP TX SCH ×6 (03:08→23:17)
[2018-03-31] MEDS: cloNIDine 0.1 MG TABLET PO SCH ×4 (04:58→22:15)
[2018-03-31 05:03] LABS: Basophils % 0.5 % (0.0-0.8); Eosinophils # 0.1 10*3/uL (0.0-0.87); Eosinophils % 0.9 % (0.00-10.9); Hematocrit 27.4 VOL% (42.0-52.0); Hemoglobin 8.6 GM/DL (14.0-18.0); Immature Granulocytes % 0.8 %; Immature Granulocytes Absolute 0.06 #; Lymphocytes # 2.3 10*3/uL (1.4-4.0); Lymphocytes % 29.2 % (21.2-54.2); Mean Corpuscular HGB Conc 31.4 GM/DL (32-36); Mean Corpuscular Hemoglobin 29 PG (27-34); Mean Corpuscular Volume 93.5 FL (87-102); Mean Platelet Volume 11.1 FL (9.6-12.0); Monocytes # 0.6 10*3/uL (0.11-0.8); Monocytes % 7.2 % (1.7-12.7); Neutrophils # 4.8 10*3/uL (1.4-7.4); Neutrophils % 61.4 % (38.7-73.9); Platelet Count 210 T/CUMM (130-400); Red Blood Count 2.93 MC/CUMM (3.8-5.5); Red Cell Distribution Width 15.7 % (9.3-17.3); White Blood Count 7.9 T/CUMM (4-12)
[2018-03-31 05:36] LABS: Alanine Aminotransferase 58 U/L (16-61); Albumin 2.2 G/DL (3.4-5.0); Alkaline Phosphatase 136 U/L (45-117); Aspartate Amino Transferase 38 U/L (0-37); Bilirubin,Indirect 0.8 MG/DL (0.0-1.0); Blood Urea Nitrogen 17 MG/DL (7-18); Calcium 8.4 MG/DL (8.5-10.1); Glucose 92 MG/DL (74-106); Osmolality,Calculated 282.3 MOS/KG (273-304); Sodium 141 MMOL/L (136-145); Total Protein 5.7 G/DL (6.4-8.3)
[2018-03-31 05:37] LABS: Troponin I 0.447 NG/ML (0.00-0.045)
[2018-03-31] MEDS: INSULIN REGULAR 100 UNIT/ML SUBCUT SCH ×4 (09:02→22:16)
[2018-03-31] MEDS: GLIMEPIRIDE 4 MG TABLET PO SCH (09:03)
[2018-03-31] MEDS: ATORVASTATIN 40 MG TABLET PO SCH (09:03)
[2018-03-31] MEDS: VERAPAMIL 80 MG TABLET PO SCH ×3 (09:04→22:15)
[2018-03-31] MEDS: FERROUS SULFATE 325 MG TABLET PO SCH (09:04)
[2018-03-31] MEDS: CHLORHEXIDINE 0.12% ORAL RINSE 60 ML BOTTLE SWISH/SPIT SCH ×2 (09:04→22:16)
[2018-03-31] MEDS: PANTOPRAZOLE 40 MG TABLET PO SCH (09:04)
[2018-03-31] MEDS: DOCUSATE SODIUM 100 MG CAPSULE PO SCH (09:04)
[2018-03-31] MEDS: ASPIRIN EC 325 MG TABLET PO SCH (09:04)
[2018-03-31] MEDS: oxyCODONE/ACETAMINOPHEN 5-325 MG TABLET PO PRN (17:31)
[2018-04-01] MEDS: ALBUTEROL/IPRATROPIUM 3 ML NEB RESP TX SCH ×6 (03:29→23:06)
[2018-04-01] MEDS: INSULIN REGULAR 100 UNIT/ML SUBCUT SCH ×4 (09:00→23:04)
[2018-04-01] MEDS: FERROUS SULFATE 325 MG TABLET PO SCH (09:01)
[2018-04-01] MEDS: ASPIRIN EC 325 MG TABLET PO SCH (09:01)
[2018-04-01] MEDS: VERAPAMIL 80 MG TABLET PO SCH ×3 (09:01→23:03)
[2018-04-01] MEDS: DOCUSATE SODIUM 100 MG CAPSULE PO SCH (09:01)
[2018-04-01] MEDS: cloNIDine 0.1 MG TABLET PO SCH ×3 (09:01→23:03)
[2018-04-01] MEDS: ATORVASTATIN 40 MG TABLET PO SCH (09:01)
[2018-04-01] MEDS: PANTOPRAZOLE 40 MG TABLET PO SCH (09:01)
[2018-04-01] MEDS: CHLORHEXIDINE 0.12% ORAL RINSE 60 ML BOTTLE SWISH/SPIT SCH ×2 (09:02→23:03)
[2018-04-01] MEDS: GLIMEPIRIDE 4 MG TABLET PO SCH (09:02)
[2018-04-02] MEDS: ALBUTEROL/IPRATROPIUM 3 ML NEB RESP TX SCH ×3 (03:35→11:25)
[2018-04-02] MEDS: INSULIN REGULAR 100 UNIT/ML SUBCUT SCH ×2 (07:45→12:15)
[2018-04-02] MEDS: cloNIDine 0.1 MG TABLET PO SCH (08:54)
[2018-04-02] MEDS: DOCUSATE SODIUM 100 MG CAPSULE PO SCH (08:55)
[2018-04-02] MEDS: ASPIRIN EC 325 MG TABLET PO SCH (08:55)
[2018-04-02] MEDS: GLIMEPIRIDE 4 MG TABLET PO SCH (08:55)
[2018-04-02] MEDS: ATORVASTATIN 40 MG TABLET PO SCH (08:55)
[2018-04-02] MEDS: PANTOPRAZOLE 40 MG TABLET PO SCH (08:56)
[2018-04-02] MEDS: FERROUS SULFATE 325 MG TABLET PO SCH (08:56)
[2018-04-02] MEDS: VERAPAMIL 80 MG TABLET PO SCH (08:56)
[2018-04-02] MEDS: CHLORHEXIDINE 0.12% ORAL RINSE 60 ML BOTTLE SWISH/SPIT SCH (08:57)
[2018-04-02 12:11] VITALS: BP 133/71
== END 2018-04-02 12:16 | disposition swing bed (61) | DRG 236 ==
LOC: N.TELES 10:37 → N.CVR 03-23 10:01 → N.ICU 03-24 16:04 → N.TELES 03-26 10:26

== ENCOUNTER 2018-05-21 02:37 | Inpatient (IN) ==
[2018-05-21] MEDS ORDERED: ONDANSETRON 4 MG/2 ML VIAL ONE (04:19)
[2018-05-21] MEDS ORDERED: ALBUTEROL 2.5 MG/3 ML NEB RESP TX PRN (04:34)
[2018-05-21] MEDS ORDERED: ONDANSETRON 4 MG/2 ML VIAL IV PRN (04:34)
[2018-05-21] MEDS ORDERED: ONDANSETRON 4 MG/2 ML VIAL IV ONE (04:37)
[2018-05-21] MEDS ORDERED: PROMETHAZINE INJ 25 MG in SODIUM CHLORIDE 0.9% 50 ML IV PRN (04:42)
[2018-05-21] MEDS ORDERED: LABETALOL 20 MG/4 ML SYRINGE IV ONE (04:48)
[2018-05-21] MEDS ORDERED: NITROGLYCERIN SL 0.4 MG TABLET SL PRN (04:50)
[2018-05-21 04:56] LABS: Basophils % 0.4 % (0.0-0.8); Eosinophils % 0.1 % (0.00-10.9); Hematocrit 43.5 VOL% (42.0-52.0); Hemoglobin 13.5 GM/DL (14.0-18.0); Immature Granulocytes % 0.3 %; Immature Granulocytes Absolute 0.02 #; Lymphocytes # 1.4 10*3/uL (1.4-4.0); Lymphocytes % 17.9 % (21.2-54.2); Mean Corpuscular Hemoglobin 29 PG (27-34); Mean Corpuscular Volume 92.6 FL (87-102); Mean Platelet Volume 10.8 FL (9.6-12.0); Monocytes # 0.2 10*3/uL (0.11-0.8); Neutrophils # 6.1 10*3/uL (1.4-7.4); Neutrophils % 78.3 % (38.7-73.9); Platelet Count 234 T/CUMM (130-400); White Blood Count 7.8 T/CUMM (4-12)
[2018-05-21] MEDS ORDERED: GLUCAGON 1 MG VIAL IM PRN (04:59)
[2018-05-21] MEDS ORDERED: DEXTROSE 50% 25 GM/50 ML SYRINGE IV PRN (04:59)
[2018-05-21 05:13] LABS: PT Patient Result 10.7 SECS
[2018-05-21 05:14] LABS: Alanine Aminotransferase 21 U/L (16-61); Albumin 3.4 G/DL (3.4-5.0); Alkaline Phosphatase 143 U/L (45-117); Aspartate Amino Transferase 20 U/L (0-37); Blood Urea Nitrogen 16 MG/DL (7-18); CKMB % 2.5 %; Calcium 8.6 MG/DL (8.5-10.1); Glucose 239 MG/DL (74-106); Lipase < 50.0 U/L (73-393); Osmolality,Calculated 287.4 MOS/KG (273-304); Potassium 3.9 MMOL/L (3.5-5.1); Sodium 140 MMOL/L (136-145); Total Protein 8.5 G/DL (6.4-8.3)
[2018-05-21 05:17] LABS: Troponin I 0.254 NG/ML (0.00-0.045)
[2018-05-21] MEDS: INSULIN LISPRO 100 UNIT/ML SUBCUT SCH ×4 (05:20→23:45)
[2018-05-21] MEDS ORDERED: hydrALAZINE 20 MG/1 ML VIAL ONE (07:27)
[2018-05-21] MEDS: hydrALAZINE 20 MG/1 ML VIAL IV PRN ×2 (07:35→12:32)
[2018-05-21] MEDS ORDERED: PANTOPRAZOLE 40 MG VIAL IV SCH (09:00)
[2018-05-21] MEDS ORDERED: cloNIDine 0.2 MG/24 HR PATCH TRANSDERM SCH (09:00)
[2018-05-21] MEDS ORDERED: VERAPAMIL 80 MG TABLET PO SCH (09:30)
[2018-05-21] MEDS: ATORVASTATIN 40 MG TABLET PO SCH (09:39)
[2018-05-21 10:44] LABS: Apearance,Urine CLEAR (Clear); Bilirubin,Urine Negative (Negative); Blood, Urine Negative (Negative); Glucose,Urine (UA) >=500 mg/dL (Negative); Ketones,Urine 5 mg/dL (Negative); Mucus,Urine Occasional /LPF (Occasional); Nitrite,Urine Negative (Negative); Protein,Urine 30 MG/DL; RBC,Urine 4 /HPF (0-4); Urine Color Yellow (Yellow); Urine Specific Gravity 1.022 (1.001-1.035); Urine Urobilinogen < 2.0 EU/DL (0.2-1.0)
[2018-05-21] MEDS ORDERED: CARVEDILOL 3.125 MG TABLET PO SCH (11:00)
[2018-05-21] MEDS: ASPIRIN EC 81 MG TABLET PO SCH (11:01)
[2018-05-21] MEDS: amLODIPine 5 MG TABLET PO SCH (11:02)
[2018-05-21 11:32] LABS: CKMB % 2.1 %
[2018-05-21 11:33] LABS: Troponin I 0.421 NG/ML (0.00-0.045)
[2018-05-21 13:47] LABS: CKMB % 1.8 %
[2018-05-21 13:48] LABS: Troponin I 0.436 NG/ML (0.00-0.045)
[2018-05-21] MEDS ORDERED: LABETALOL 20 MG/4 ML SYRINGE IV PRN (16:32)
[2018-05-21] MEDS: ALBUTEROL/IPRATROPIUM 3 ML NEB RESP TX SCH (20:01)
[2018-05-21] MEDS: CARVEDILOL 6.25 MG TABLET PO SCH (20:36)
[2018-05-21] MEDS: LATANOPROST 0.005% OPH SOLN 2.5 ML BOTTLE BOTH EYES SCH (20:36)
[2018-05-22 04:11] LABS: Basophils # 0.1 10*3/uL (0.0-0.2); Basophils % 1.1 % (0.0-0.8); Eosinophils # 0.1 10*3/uL (0.0-0.87); Eosinophils % 0.9 % (0.00-10.9); Hematocrit 39.7 VOL% (42.0-52.0); Hemoglobin 12.5 GM/DL (14.0-18.0); Immature Granulocytes % 0.1 %; Immature Granulocytes Absolute 0.01 #; Lymphocytes # 3.9 10*3/uL (1.4-4.0); Mean Corpuscular HGB Conc 31.5 GM/DL (32-36); Mean Corpuscular Hemoglobin 29 PG (27-34); Mean Corpuscular Volume 91.7 FL (87-102); Mean Platelet Volume 10.5 FL (9.6-12.0); Monocytes # 0.7 10*3/uL (0.11-0.8); Monocytes % 7.8 % (1.7-12.7); Neutrophils # 3.7 10*3/uL (1.4-7.4); Neutrophils % 44.1 % (38.7-73.9); Platelet Count 222 T/CUMM (130-400); Red Blood Count 4.33 MC/CUMM (3.8-5.5); Red Cell Distribution Width 15.9 % (9.3-17.3); White Blood Count 8.4 T/CUMM (4-12)
[2018-05-22 04:27] LABS: Calcium 8.6 MG/DL (8.5-10.1); Osmolality,Calculated 283.3 MOS/KG (273-304); Potassium 3.8 MMOL/L (3.5-5.1)
[2018-05-22] MEDS: INSULIN LISPRO 100 UNIT/ML SUBCUT SCH ×4 (05:14→23:42)
[2018-05-22] MEDS: ALBUTEROL/IPRATROPIUM 3 ML NEB RESP TX SCH ×2 (07:11→18:55)
[2018-05-22] MEDS: GLIMEPIRIDE 4 MG TABLET PO SCH (07:56)
[2018-05-22] MEDS: FERROUS SULFATE 325 MG TABLET PO SCH (08:00)
[2018-05-22] MEDS: ATORVASTATIN 40 MG TABLET PO SCH (08:00)
[2018-05-22] MEDS: PANTOPRAZOLE 40 MG TABLET PO SCH (08:00)
[2018-05-22] MEDS: CARVEDILOL 6.25 MG TABLET PO SCH ×2 (08:00→18:22)
[2018-05-22] MEDS: amLODIPine 5 MG TABLET PO SCH ×2 (08:00→16:21)
[2018-05-22] MEDS: ASPIRIN EC 81 MG TABLET PO SCH (08:55)
[2018-05-22] MEDS ORDERED: ASPIRIN CHEW 81 MG TABLET PO ONE (11:55)
[2018-05-22] MEDS: CHLORTHALIDONE 25 MG TABLET PO SCH (16:21)
[2018-05-22] MEDS: LATANOPROST 0.005% OPH SOLN 2.5 ML BOTTLE BOTH EYES SCH (21:02)
[2018-05-23 04:19] LABS: Basophils # 0.1 10*3/uL (0.0-0.2); Basophils % 0.9 % (0.0-0.8); Eosinophils # 0.1 10*3/uL (0.0-0.87); Eosinophils % 1.5 % (0.00-10.9); Hemoglobin 12.6 GM/DL (14.0-18.0); Immature Granulocytes % 0.3 %; Immature Granulocytes Absolute 0.02 #; Lymphocytes # 4.3 10*3/uL (1.4-4.0); Lymphocytes % 54.9 % (21.2-54.2); Mean Corpuscular HGB Conc 31.5 GM/DL (32-36); Mean Corpuscular Hemoglobin 29 PG (27-34); Mean Corpuscular Volume 92.2 FL (87-102); Monocytes # 0.5 10*3/uL (0.11-0.8); Monocytes % 6.6 % (1.7-12.7); Neutrophils # 2.8 10*3/uL (1.4-7.4); Neutrophils % 35.8 % (38.7-73.9); Platelet Count 214 T/CUMM (130-400); Red Blood Count 4.34 MC/CUMM (3.8-5.5); Red Cell Distribution Width 15.6 % (9.3-17.3); White Blood Count 7.9 T/CUMM (4-12)
[2018-05-23 04:23] VITALS: BP 156/81
[2018-05-23 04:46] LABS: Calcium 8.9 MG/DL (8.5-10.1); Osmolality,Calculated 286.5 MOS/KG (273-304); Potassium 3.7 MMOL/L (3.5-5.1)
[2018-05-23 04:54] LABS: Eosinophils 1 % (0-10); Lymphocytes 70 % (20-55); Segmented Neutrophils 21 % (50-85); Total Cells Counted 100
[2018-05-23 04:55] LABS: Hypochromasia 1+; Platelet Estimate Normal; Reactive Lymphocytes 2+
[2018-05-23] MEDS: INSULIN LISPRO 100 UNIT/ML SUBCUT SCH ×2 (05:54→13:51)
[2018-05-23] MEDS: ALBUTEROL/IPRATROPIUM 3 ML NEB RESP TX SCH (07:11)
[2018-05-23] MEDS: ATORVASTATIN 40 MG TABLET PO SCH (08:22)
[2018-05-23] MEDS: FERROUS SULFATE 325 MG TABLET PO SCH (08:23)
[2018-05-23] MEDS: CARVEDILOL 6.25 MG TABLET PO SCH (08:23)
[2018-05-23] MEDS: GLIMEPIRIDE 4 MG TABLET PO SCH (08:23)
[2018-05-23] MEDS: CHLORTHALIDONE 25 MG TABLET PO SCH (08:24)
[2018-05-23] MEDS: amLODIPine 5 MG TABLET PO SCH (08:24)
[2018-05-23] MEDS: ASPIRIN EC 81 MG TABLET PO SCH (08:24)
[2018-05-23] MEDS: PANTOPRAZOLE 40 MG TABLET PO SCH (08:25)
[2018-05-23] MEDS ORDERED: amLODIPine 5 MG TABLET PO SCH (09:00)
== END 2018-05-23 16:38 | disposition home or self-care (01) | DRG 305 ==
LOC: N.ICU 04:06 → SUATTDRO 04:06
PROVIDERS: ADMIT Internal Medicine; ATTEND Internal Medicine

== ENCOUNTER 2021-12-04 07:58 | Inpatient (IN) ==
[2021-12-04 09:01] LABS: Basophils % 0.2 % (0.0-0.8); Hematocrit 36.4 VOL% (42.0-52.0); Immature Granulocytes % 0.7 %; Immature Granulocytes Absolute 0.12 #; Lymphocytes # 0.9 10*3/uL (1.4-4.0); Lymphocytes % 5.6 % (21.2-54.2); Mean Corpuscular Volume 94.5 FL (87-102); Mean Platelet Volume 9.7 FL (9.6-12.0); Monocytes % 6.3 % (1.7-12.7); Neutrophils % 87.2 % (38.7-73.9); Platelet Count 318 T/CUMM (130-400); Red Blood Count 3.85 MC/CUMM (3.8-5.5); Red Cell Distribution Width 13.3 % (9.3-17.3); White Blood Count 16.2 T/CUMM (4-12)
[2021-12-04 09:14] LABS: Alanine Aminotransferase 30 U/L (16-61); Albumin 2.5 G/DL (3.4-5.0); Alkaline Phosphatase 154 U/L (45-117); Aspartate Amino Transferase 22 U/L (0-37); Blood Urea Nitrogen 32 MG/DL (7-18); Calcium 9.2 MG/DL (8.5-10.1); Carbon Dioxide 28 MMOL/L (21-32); Chloride 100 MMOL/L (98-107); Glucose 221 MG/DL (74-106); Osmolality,Calculated 288.7 MOS/KG (273-304); Sodium 138 MMOL/L (136-145); Total Protein 8.5 G/DL (6.4-8.2)
[2021-12-04] MEDS ORDERED: SODIUM CHLORIDE 0.9% 1,000 ML IV STA (09:28)
[2021-12-04 09:31] LABS: Bilirubin,Urine Negative (Negative); Blood, Urine Small mg/dL (Negative); Glucose,Urine (UA) >=500 mg/dL (Negative); Ketones,Urine Negative (Negative); Mucus,Urine Occasional /LPF (Occasional); Nitrite,Urine Negative (Negative); Protein,Urine Negative (Negative); RBC,Urine 2 /HPF (0-4); Urine Appearance CLEAR (Clear); Urine Color Yellow (Yellow); Urine Specific Gravity 1.021 (1.001-1.035)
[2021-12-04] MEDS ORDERED: HYDROmorphone 1 MG/1 ML SYRINGE IV STA (09:33)
[2021-12-04] MEDS ORDERED: cefTRIAXone 1,000 MG in SODIUM CHLORIDE 0.9% 100 ML IV STA (09:36)
[2021-12-04] MEDS ORDERED: POTASSIUM CHLORIDE 20 MEQ TABLET PO STA (09:38)
[2021-12-04] MEDS ORDERED: GLUCAGON 1 MG VIAL IM PRN (10:09)
[2021-12-04] MEDS ORDERED: MORPHINE 2 MG/1 ML SYRINGE IV PRN (10:11)
[2021-12-04] MEDS ORDERED: BISACODYL 5 MG TABLET PO PRN (10:11)
[2021-12-04] MEDS ORDERED: hydrALAZINE 20 MG/1 ML VIAL IV PRN (10:11)
[2021-12-04] MEDS ORDERED: ALBUTEROL 2.5 MG/3 ML NEB RESP TX PRN (10:11)
[2021-12-04] MEDS ORDERED: ONDANSETRON 4 MG/2 ML VIAL IV PRN ×2 (10:11→13:03)
[2021-12-04] MEDS ORDERED: ACETAMINOPHEN 325 MG TABLET PO PRN (10:11)
[2021-12-04] MEDS ORDERED: POTASSIUM CHLORIDE 20 MEQ TABLET PO ONE (10:13)
[2021-12-04] MEDS ORDERED: DEXTROSE 10% 250 ML BAG IV PRN (10:16)
[2021-12-04] MEDS ORDERED: SODIUM CHLORIDE 0.9% 1,400 ML IV STA (10:21)
[2021-12-04] MEDS: PIPERACILLIN/TAZOBACTAM 3,375 MG in SODIUM CHLORIDE 0.9% 100 ML IV SCH ×2 (11:33→18:05)
[2021-12-04] MEDS: ENOXAPARIN 40 MG/0.4 ML SYRINGE SUBCUT SCH (11:33)
[2021-12-04] MEDS: INSULIN LISPRO 100 UNIT/ML SUBCUT SCH ×3 (11:57→21:00)
[2021-12-04] MEDS ORDERED: KETAMINE 500 MG/10 ML VIAL ONE (12:26)
[2021-12-04] MEDS ORDERED: PHENYLEPHRINE 1 MG/10 ML SYRINGE IV ONE (12:26)
[2021-12-04] MEDS ORDERED: propofoL 200 MG/20 ML VIAL IV ONE (12:26)
[2021-12-04] MEDS ORDERED: LIDOCAINE 2% 5 ML VIAL ONE (12:26)
[2021-12-04] MEDS ORDERED: GLYCOPYRROLATE 0.4 MG/2 ML VIAL ONE (12:26)
[2021-12-04] MEDS ORDERED: MIDAZOLAM 2 MG/2 ML VIAL ONE (12:27)
[2021-12-04] MEDS ORDERED: fentaNYL 100 MCG/2 ML VIAL ONE (12:27)
[2021-12-04] MEDS ORDERED: BUPIVACAINE MPF 0.25% 10 ML VIAL ONE (12:28)
[2021-12-04] MEDS ORDERED: LIDOCAINE 1% 5 ML VIAL ONE (12:28)
[2021-12-04] MEDS ORDERED: LACTATED RINGERS 1,000 ML IV ONE (12:31)
[2021-12-04] MEDS: VANCOMYCIN INJ 1,250 MG in SODIUM CHLORIDE 0.9% 250 ML IV SCH (12:32)
[2021-12-04] MEDS: LACTATED RINGERS 1,000 ML IV SCH ×2 (12:32→21:01)
[2021-12-04] MEDS ORDERED: MEPERIDINE 25 MG/1 ML VIAL IV PRN (13:03)
[2021-12-04] MEDS ORDERED: diphenhydrAMINE 50 MG/1 ML VIAL IV PRN (13:03)
[2021-12-04] MEDS ORDERED: PROMETHAZINE INJ 25 MG in SODIUM CHLORIDE 0.9% 50 ML IV PRN (13:03)
[2021-12-04] MEDS: HYDROmorphone 1 MG/1 ML SYRINGE IV PRN ×2 (13:40→13:45)
[2021-12-04] MEDS ORDERED: INFLUENZA VIRUS VACCINE 0.5 ML SYRINGE IM ONE (15:38)
[2021-12-04] MEDS ORDERED: DICLOFENAC 1% GEL 100 GM TUBE TOP PRN (17:00)
[2021-12-04] MEDS: ATORVASTATIN 40 MG TABLET PO SCH (21:00)
[2021-12-05] MEDS: PIPERACILLIN/TAZOBACTAM 3,375 MG in SODIUM CHLORIDE 0.9% 100 ML IV SCH ×3 (03:59→18:07)
[2021-12-05] MEDS: VANCOMYCIN INJ 1,250 MG in SODIUM CHLORIDE 0.9% 250 ML IV SCH ×2 (05:32→23:59)
[2021-12-05] MEDS: LACTATED RINGERS 1,000 ML IV SCH ×2 (05:45→09:07)
[2021-12-05 05:51] LABS: Basophils # 0.1 10*3/uL (0.0-0.2); Basophils % 0.3 % (0.0-0.8); Eosinophils % 0.1 % (0.00-10.9); Hematocrit 33.2 VOL% (42.0-52.0); Hemoglobin 10.9 GM/DL (14.0-18.0); Immature Granulocytes % 0.7 %; Immature Granulocytes Absolute 0.11 #; Lymphocytes # 1.8 10*3/uL (1.4-4.0); Mean Corpuscular HGB Conc 32.8 GM/DL (32-36); Mean Corpuscular Volume 95.4 FL (87-102); Mean Platelet Volume 10.1 FL (9.6-12.0); Monocytes # 1.1 10*3/uL (0.11-0.8); Monocytes % 7.2 % (1.7-12.7); Neutrophils % 80.7 % (38.7-73.9); Platelet Count 298 T/CUMM (130-400); Red Blood Count 3.48 MC/CUMM (3.8-5.5); Red Cell Distribution Width 13.3 % (9.3-17.3); White Blood Count 15.9 T/CUMM (4-12)
[2021-12-05 06:10] LABS: Calcium 9.4 MG/DL (8.5-10.1); Osmolality,Calculated 284.1 MOS/KG (273-304); Potassium 3.1 MMOL/L (3.5-5.1); Risk Ratio 3.09; Total Protein 7.3 G/DL (6.4-8.2); VLDL Cholesterol 11.6 MG/DL
[2021-12-05 06:50] LABS: Lymphocytes 10 % (20-55); Platelet Estimate Normal; Target Cells 1+; Total Cells Counted 100
[2021-12-05] MEDS: INSULIN LISPRO 100 UNIT/ML SUBCUT SCH ×4 (07:10→21:30)
[2021-12-05] MEDS: atenoloL 50 MG TABLET PO SCH (09:06)
[2021-12-05] MEDS: DAPAGLIFLOZIN 10 MG TABLET PO SCH (09:07)
[2021-12-05] MEDS: PANTOPRAZOLE 40 MG TABLET PO SCH (09:07)
[2021-12-05] MEDS: amLODIPine 10 MG TABLET PO SCH (09:07)
[2021-12-05] MEDS: ENOXAPARIN 40 MG/0.4 ML SYRINGE SUBCUT SCH (11:45)
[2021-12-05] MEDS ORDERED: MAGNESIUM SULF RIDER 4 GM/100 ML PREMIX IV PRN (13:47)
[2021-12-05] MEDS ORDERED: MAGNESIUM SULF RIDER 2 GM/50 ML PREMIX IV PRN (13:47)
[2021-12-05] MEDS ORDERED: POTASSIUM CHLORIDE 20 MEQ TABLET PO PRN (13:47)
[2021-12-05] MEDS ORDERED: COLCHICINE 0.6 MG CAPSULE PO ONE (19:30)
[2021-12-05] MEDS: ATORVASTATIN 40 MG TABLET PO SCH (21:29)
[2021-12-06] MEDS: LACTATED RINGERS 1,000 ML IV SCH ×5 (00:16→23:37)
[2021-12-06] MEDS: PIPERACILLIN/TAZOBACTAM 3,375 MG in SODIUM CHLORIDE 0.9% 100 ML IV SCH ×2 (03:16→10:37)
[2021-12-06 05:31] LABS: Basophils % 0.2 % (0.0-0.8); Eosinophils # 0.1 10*3/uL (0.0-0.87); Eosinophils % 0.4 % (0.00-10.9); Hematocrit 30.8 VOL% (42.0-52.0); Immature Granulocytes % 0.7 %; Lymphocytes # 1.8 10*3/uL (1.4-4.0); Lymphocytes % 12.8 % (21.2-54.2); Mean Corpuscular HGB Conc 32.5 GM/DL (32-36); Mean Corpuscular Volume 95.7 FL (87-102); Mean Platelet Volume 9.8 FL (9.6-12.0); Monocytes % 7.5 % (1.7-12.7); Neutrophils % 78.4 % (38.7-73.9); Platelet Count 254 T/CUMM (130-400); Red Blood Count 3.22 MC/CUMM (3.8-5.5); Red Cell Distribution Width 13.2 % (9.3-17.3); White Blood Count 13.7 T/CUMM (4-12)
[2021-12-06 05:54] LABS: Calcium 8.7 MG/DL (8.5-10.1); Osmolality,Calculated 282.3 MOS/KG (273-304)
[2021-12-06] MEDS: INSULIN LISPRO 100 UNIT/ML SUBCUT SCH ×4 (07:49→21:28)
[2021-12-06] MEDS ORDERED: POTASSIUM CHLORIDE 20 MEQ TABLET PO ONE (08:38)
[2021-12-06] MEDS ORDERED: cloNIDine 0.2 MG/24 HR PATCH TRANSDERM SCH (09:00)
[2021-12-06] MEDS: PANTOPRAZOLE 40 MG TABLET PO SCH (09:29)
[2021-12-06] MEDS: atenoloL 50 MG TABLET PO SCH (09:29)
[2021-12-06] MEDS: amLODIPine 10 MG TABLET PO SCH (09:29)
[2021-12-06] MEDS: DAPAGLIFLOZIN 10 MG TABLET PO SCH (09:29)
[2021-12-06] MEDS: ENOXAPARIN 40 MG/0.4 ML SYRINGE SUBCUT SCH (10:37)
[2021-12-06] MEDS: ATORVASTATIN 40 MG TABLET PO SCH (21:26)
[2021-12-06] MEDS: CEFUROXIME 500 MG TABLET PO SCH (21:27)
[2021-12-07 06:57] LABS: Basophils % 0.4 % (0.0-0.8); Eosinophils # 0.1 10*3/uL (0.0-0.87); Hematocrit 30.3 VOL% (42.0-52.0); Hemoglobin 9.8 GM/DL (14.0-18.0); Immature Granulocytes % 0.8 %; Immature Granulocytes Absolute 0.09 #; Lymphocytes # 1.7 10*3/uL (1.4-4.0); Lymphocytes % 15.9 % (21.2-54.2); Mean Corpuscular HGB Conc 32.3 GM/DL (32-36); Mean Platelet Volume 10.4 FL (9.6-12.0); Monocytes # 0.8 10*3/uL (0.11-0.8); Monocytes % 7.7 % (1.7-12.7); Neutrophils % 74.2 % (38.7-73.9); Platelet Count 282 T/CUMM (130-400); Red Blood Count 3.19 MC/CUMM (3.8-5.5); Red Cell Distribution Width 13.4 % (9.3-17.3); White Blood Count 10.7 T/CUMM (4-12)
[2021-12-07 07:16] LABS: Calcium 8.9 MG/DL (8.5-10.1); Osmolality,Calculated 281.4 MOS/KG (273-304)
[2021-12-07] MEDS: INSULIN LISPRO 100 UNIT/ML SUBCUT SCH ×3 (07:41→16:11)
[2021-12-07] MEDS: CEFUROXIME 500 MG TABLET PO SCH (09:11)
[2021-12-07] MEDS: LACTATED RINGERS 1,000 ML IV SCH (09:11)
[2021-12-07] MEDS: amLODIPine 10 MG TABLET PO SCH (09:11)
[2021-12-07] MEDS: atenoloL 50 MG TABLET PO SCH (09:11)
[2021-12-07] MEDS: DAPAGLIFLOZIN 10 MG TABLET PO SCH (09:11)
[2021-12-07] MEDS: PANTOPRAZOLE 40 MG TABLET PO SCH (09:11)
[2021-12-07] MEDS: ENOXAPARIN 40 MG/0.4 ML SYRINGE SUBCUT SCH (11:19)
[2021-12-07] MEDS: DICLOFENAC 1% GEL 100 GM TUBE TOP SCH ×2 (12:17→16:11)
[2021-12-07 12:28] VITALS: BP 146/58
== END 2021-12-07 16:41 | disposition swing bed (61) | DRG 854 ==
LOC: EDBD → EDUNIT# → N.ED 07:58 → N.EDINP 10:29 → SUATTDRO 10:29 → N.3E 12:39
PROVIDERS: ADMIT Emergency Medicine; ATTEND Internal Medicine Geriatric Medicine

== ENCOUNTER 2021-12-27 13:29 | Observation (INO) ==
[2021-12-27 14:41] LABS: Basophils # 0.1 10*3/uL (0.0-0.2); Basophils % 0.6 % (0.0-0.8); Eosinophils % 0.4 % (0.00-10.9); Hematocrit 32.7 VOL% (42.0-52.0); Hemoglobin 10.3 GM/DL (14.0-18.0); Immature Granulocytes % 0.6 %; Immature Granulocytes Absolute 0.06 #; Lymphocytes # 1.8 10*3/uL (1.4-4.0); Lymphocytes % 18.2 % (21.2-54.2); Mean Corpuscular HGB Conc 31.5 GM/DL (32-36); Mean Corpuscular Volume 96.7 FL (87-102); Mean Platelet Volume 10.6 FL (9.6-12.0); Monocytes # 0.6 10*3/uL (0.11-0.8); Monocytes % 6.3 % (1.7-12.7); Neutrophils % 73.9 % (38.7-73.9); Platelet Count 438 T/CUMM (130-400); Red Blood Count 3.38 MC/CUMM (3.8-5.5)
[2021-12-27 15:01] LABS: Calcium 9.4 MG/DL (8.5-10.1); Osmolality,Calculated 287.5 MOS/KG (273-304)
[2021-12-27] MEDS ORDERED: ONDANSETRON 4 MG/2 ML VIAL IV PRN (15:19)
[2021-12-27] MEDS ORDERED: ZALEPLON 5 MG CAPSULE PO PRN (15:19)
[2021-12-27] MEDS ORDERED: DEXTROSE 50% 25 GM/50 ML VIAL IV PRN (15:19)
[2021-12-27] MEDS ORDERED: ACETAMINOPHEN 325 MG TABLET PO PRN (15:19)
[2021-12-27] MEDS ORDERED: GLUCAGON 1 MG VIAL IM PRN ×2 (15:19)
[2021-12-27] MEDS ORDERED: DEXTROSE 10% 250 ML BAG IV PRN (15:33)
[2021-12-27] MEDS ORDERED: ALBUTEROL/IPRATROPIUM 3 ML NEB RESP TX PRN (16:06)
[2021-12-27] MEDS ORDERED: cloNIDine 0.2 MG/24 HR PATCH TRANSDERM SCH (16:30)
[2021-12-27] MEDS: INSULIN REGULAR 100 UNIT/ML SUBCUT SCH ×2 (16:58→21:31)
[2021-12-27] MEDS: ASCORBIC ACID 500 MG TABLET PO SCH (21:33)
[2021-12-28 05:10] LABS: Basophils # 0.1 10*3/uL (0.0-0.2); Basophils % 0.5 % (0.0-0.8); Eosinophils # 0.1 10*3/uL (0.0-0.87); Eosinophils % 0.7 % (0.00-10.9); Hematocrit 31.8 VOL% (42.0-52.0); Hemoglobin 10.1 GM/DL (14.0-18.0); Immature Granulocytes % 0.5 %; Immature Granulocytes Absolute 0.05 #; Lymphocytes # 2.2 10*3/uL (1.4-4.0); Lymphocytes % 22.3 % (21.2-54.2); Mean Corpuscular HGB Conc 31.8 GM/DL (32-36); Mean Corpuscular Volume 95.5 FL (87-102); Mean Platelet Volume 10.8 FL (9.6-12.0); Monocytes # 0.7 10*3/uL (0.11-0.8); Monocytes % 6.7 % (1.7-12.7); Neutrophils % 69.3 % (38.7-73.9); Platelet Count 449 T/CUMM (130-400); Red Blood Count 3.33 MC/CUMM (3.8-5.5); Red Cell Distribution Width 13.8 % (9.3-17.3); White Blood Count 9.8 T/CUMM (4-12)
[2021-12-28 05:35] LABS: Albumin 1.8 G/DL (3.4-5.0); Bilirubin,Total 0.5 MG/DL (0.20-1.00); Calcium 9.3 MG/DL (8.5-10.1); Osmolality,Calculated 287.1 MOS/KG (273-304); Potassium 3.5 MMOL/L (3.5-5.1); Total Protein 8.2 G/DL (6.4-8.2)
[2021-12-28 08:21] LABS: Hepatitis B Core IgM Quant < 0.05 Index; Hepatitis B Surface Ag Quant < 0.10 Index; Hepatitis B Surface Ag Result Non-Reactive (NonReactive); Hepatitis C Virus Ab Quant 0.14 Index; Hepatitis C Virus Ab Result Non-Reactive (NonReactive)
[2021-12-28] MEDS ORDERED: CHLORTHALIDONE 25 MG TABLET PO SCH (09:00)
[2021-12-28] MEDS ORDERED: ATORVASTATIN 40 MG TABLET PO SCH (09:00)
[2021-12-28] MEDS ORDERED: allopurinoL 100 MG TABLET PO SCH (09:00)
[2021-12-28] MEDS ORDERED: amLODIPine 10 MG TABLET PO SCH (09:00)
[2021-12-28] MEDS ORDERED: PANTOPRAZOLE 40 MG TABLET PO SCH (09:00)
[2021-12-28] MEDS ORDERED: atenoloL 50 MG TABLET PO SCH (09:00)
[2021-12-28] MEDS ORDERED: lisinopriL 5 MG TABLET PO SCH (09:00)
[2021-12-28] MEDS: INSULIN REGULAR 100 UNIT/ML SUBCUT SCH ×4 (09:41→21:51)
[2021-12-28] MEDS: ASCORBIC ACID 500 MG TABLET PO SCH ×2 (09:42→21:51)
[2021-12-28 11:50] LABS: Hyaline Casts,Urine 1 /LPF (0-3); Mucus,Urine Occasional /LPF (Occasional); RBC,Urine 2 /HPF (0-4)
[2021-12-28 11:53] LABS: Bilirubin,Urine Negative (Negative); Blood, Urine Negative (Negative); Glucose,Urine (UA) 100 mg/dL (Negative); Ketones,Urine Negative (Negative); Nitrite,Urine Negative (Negative); Protein,Urine Negative (Negative); Urine Appearance Clear (Clear); Urine Color Yellow (Yellow); Urine Specific Gravity 1.025 (1.001-1.035); Urine pH 5.5 (4.5-8.0)
[2021-12-28] MEDS ORDERED: ZINC OXIDE 16% PASTE 57 GM TUBE TOP SCH (21:00)
[2021-12-29 05:34] LABS: INR 1.1; PT Patient Result 11.6 SECS (10.1-12.1)
[2021-12-29 05:52] LABS: Albumin 1.7 G/DL (3.4-5.0); Bilirubin,Total 0.6 MG/DL (0.20-1.00); Calcium 9.3 MG/DL (8.5-10.1); Osmolality,Calculated 287.3 MOS/KG (273-304); Potassium 3.3 MMOL/L (3.5-5.1); Risk Ratio 3.12; Total Protein 8.3 G/DL (6.4-8.2); VLDL Cholesterol 12.8 MG/DL
[2021-12-29 07:31] VITALS: BP 153/68
[2021-12-29] MEDS: INSULIN REGULAR 100 UNIT/ML SUBCUT SCH (08:15)
[2021-12-29 09:04] LABS: Calcium 9.3 MG/DL (8.5-10.1); Osmolality,Calculated 288.3 MOS/KG (273-304); Potassium 3.7 MMOL/L (3.5-5.1)
== END 2021-12-29 08:36 | disposition home health service (06) ==
LOC: N.ED 13:29 → N.EDINP 13:29 → SUATTDRO 15:19 → N.3E 16:21
PROVIDERS: ADMIT Internal Medicine; ATTEND Internal Medicine

== ENCOUNTER 2022-01-05 11:30 | Inpatient (IN) ==
[2022-01-05] MEDS ORDERED: PIPERACILLIN/TAZOBACTAM 3,375 MG in SODIUM CHLORIDE 0.9% 100 ML IV STA (11:57)
[2022-01-05 12:20] LABS: Basophils # 0.1 10*3/uL (0.0-0.2); Basophils % 0.5 % (0.0-0.8); Eosinophils % 0.4 % (0.00-10.9); Hematocrit 34.9 VOL% (42.0-52.0); Hemoglobin 11.3 GM/DL (14.0-18.0); Immature Granulocytes % 0.6 %; Immature Granulocytes Absolute 0.06 #; Lymphocytes % 19.8 % (21.2-54.2); Mean Corpuscular HGB Conc 32.4 GM/DL (32-36); Mean Corpuscular Volume 94.1 FL (87-102); Monocytes # 0.6 10*3/uL (0.11-0.8); Monocytes % 5.8 % (1.7-12.7); Neutrophils % 72.9 % (38.7-73.9); Platelet Count 418 T/CUMM (130-400); Red Blood Count 3.71 MC/CUMM (3.8-5.5); Red Cell Distribution Width 13.7 % (9.3-17.3); White Blood Count 10.1 T/CUMM (4-12)
[2022-01-05 12:32] LABS: INR 1.1
[2022-01-05] MEDS ORDERED: GLUCAGON 1 MG VIAL IM PRN (12:34)
[2022-01-05] MEDS ORDERED: DEXTROSE 10% 250 ML BAG IV PRN (12:34)
[2022-01-05 12:44] LABS: Albumin 1.7 G/DL (3.4-5.0); Bilirubin,Total 0.6 MG/DL (0.20-1.00); Calcium 9.8 MG/DL (8.5-10.1); Osmolality,Calculated 280.8 MOS/KG (273-304); Potassium 3.2 MMOL/L (3.5-5.1)
[2022-01-05] MEDS ORDERED: HEPARIN 5,000 UNIT/1 ML VIAL SUBCUT SCH (13:00)
[2022-01-05] MEDS: atenoloL 50 MG TABLET PO SCH (13:24)
[2022-01-05] MEDS ORDERED: POTASSIUM CHLORIDE 20 MEQ TABLET PO ONE (13:33)
[2022-01-05] MEDS ORDERED: NICOTINE 7 MG/24 HR PATCH TRANSDERM PRN (14:10)
[2022-01-05] MEDS: ASPIRIN 325 MG TABLET PO SCH (17:26)
[2022-01-05] MEDS: INSULIN REGULAR 100 UNIT/ML SUBCUT SCH ×2 (18:04→23:37)
[2022-01-05] MEDS: HEPARIN DRIP 25,000 UNITS/500 ML PREMIX IV SCH (18:30)
[2022-01-05] MEDS: PIPERACILLIN/TAZOBACTAM 3,375 MG in SODIUM CHLORIDE 0.9% 100 ML IV SCH (23:38)
[2022-01-06 01:14] LABS: Basophils # 0.1 10*3/uL (0.0-0.2); Basophils % 0.6 % (0.0-0.8); Eosinophils # 0.1 10*3/uL (0.0-0.87); Eosinophils % 0.8 % (0.00-10.9); Hematocrit 31.3 VOL% (42.0-52.0); Immature Granulocytes % 0.5 %; Immature Granulocytes Absolute 0.05 #; Lymphocytes # 2.1 10*3/uL (1.4-4.0); Lymphocytes % 23.1 % (21.2-54.2); Mean Corpuscular HGB Conc 31.9 GM/DL (32-36); Mean Corpuscular Volume 94.8 FL (87-102); Mean Platelet Volume 10.4 FL (9.6-12.0); Monocytes # 0.7 10*3/uL (0.11-0.8); Monocytes % 7.2 % (1.7-12.7); Neutrophils % 67.8 % (38.7-73.9); Platelet Count 448 T/CUMM (130-400); Red Cell Distribution Width 13.9 % (9.3-17.3); White Blood Count 9.3 T/CUMM (4-12)
[2022-01-06 01:27] LABS: INR 1.2; PT Patient Result 12.6 SECS (10.1-12.1); Partial Thromboplastin Time 66.2 SECS (23.7-32.9)
[2022-01-06 01:41] LABS: Calcium 9.7 MG/DL (8.5-10.1); Osmolality,Calculated 289.3 MOS/KG (273-304); Potassium 3.5 MMOL/L (3.5-5.1); Thyroid Stimulating Hormone 0.445 uIU/ml (0.358-3.74)
[2022-01-06] MEDS: PIPERACILLIN/TAZOBACTAM 3,375 MG in SODIUM CHLORIDE 0.9% 100 ML IV SCH ×3 (04:06→21:21)
[2022-01-06] MEDS: atenoloL 50 MG TABLET PO SCH (10:24)
[2022-01-06] MEDS: ATORVASTATIN 40 MG TABLET PO SCH (10:24)
[2022-01-06] MEDS: PANTOPRAZOLE 40 MG TABLET PO SCH (10:24)
[2022-01-06] MEDS: INSULIN REGULAR 100 UNIT/ML SUBCUT SCH ×4 (10:25→21:21)
[2022-01-06] MEDS: ASPIRIN 325 MG TABLET PO SCH (10:26)
[2022-01-06] MEDS: HEPARIN DRIP 25,000 UNITS/500 ML PREMIX IV SCH (18:24)
[2022-01-06] MEDS: VANCOMYCIN INJ 1,000 MG in SODIUM CHLORIDE 0.9% 250 ML IV SCH (18:28)
[2022-01-06] MEDS: DOCUSATE SODIUM 100 MG CAPSULE PO PRN (21:21)
[2022-01-07] MEDS: PIPERACILLIN/TAZOBACTAM 3,375 MG in SODIUM CHLORIDE 0.9% 100 ML IV SCH ×3 (04:35→20:17)
[2022-01-07] MEDS: VANCOMYCIN INJ 1,000 MG in SODIUM CHLORIDE 0.9% 250 ML IV SCH ×2 (05:35→17:02)
[2022-01-07] MEDS: INSULIN REGULAR 100 UNIT/ML SUBCUT SCH ×4 (09:10→23:31)
[2022-01-07] MEDS: atenoloL 50 MG TABLET PO SCH (09:10)
[2022-01-07] MEDS: ASPIRIN 325 MG TABLET PO SCH (09:10)
[2022-01-07] MEDS: PANTOPRAZOLE 40 MG TABLET PO SCH (09:10)
[2022-01-07] MEDS: ATORVASTATIN 40 MG TABLET PO SCH (09:10)
[2022-01-07 09:15] LABS: Basophils # 0.1 10*3/uL (0.0-0.2); Basophils % 0.5 % (0.0-0.8); Eosinophils # 0.1 10*3/uL (0.0-0.87); Eosinophils % 0.5 % (0.00-10.9); Hematocrit 32.1 VOL% (42.0-52.0); Hemoglobin 10.2 GM/DL (14.0-18.0); Immature Granulocytes % 0.5 %; Immature Granulocytes Absolute 0.05 #; Lymphocytes # 2.8 10*3/uL (1.4-4.0); Lymphocytes % 25.2 % (21.2-54.2); Mean Corpuscular HGB Conc 31.8 GM/DL (32-36); Mean Corpuscular Volume 95.3 FL (87-102); Monocytes # 0.7 10*3/uL (0.11-0.8); Monocytes % 6.6 % (1.7-12.7); Neutrophils % 66.7 % (38.7-73.9); Platelet Count 467 T/CUMM (130-400); Red Blood Count 3.37 MC/CUMM (3.8-5.5); Red Cell Distribution Width 13.9 % (9.3-17.3); White Blood Count 10.9 T/CUMM (4-12)
[2022-01-07 09:34] LABS: Albumin 1.4 G/DL (3.4-5.0); Bilirubin,Total 0.4 MG/DL (0.20-1.00); Calcium 8.9 MG/DL (8.5-10.1); Osmolality,Calculated 283.3 MOS/KG (273-304); Potassium 2.9 MMOL/L (3.5-5.1); Total Protein 7.8 G/DL (6.4-8.2)
[2022-01-07] MEDS: POTASSIUM CHLORIDE 20 MEQ TABLET PO PRN ×4 (10:59→18:30)
[2022-01-07] MEDS: HEPARIN DRIP 25,000 UNITS/500 ML PREMIX IV SCH (20:21)
[2022-01-07] MEDS: ONDANSETRON 4 MG/2 ML VIAL IV PRN (23:16)
[2022-01-08] MEDS: PIPERACILLIN/TAZOBACTAM 3,375 MG in SODIUM CHLORIDE 0.9% 100 ML IV SCH ×3 (04:30→20:30)
[2022-01-08 05:12] LABS: Basophils % 0.4 % (0.0-0.8); Eosinophils # 0.1 10*3/uL (0.0-0.87); Eosinophils % 0.5 % (0.00-10.9); Hematocrit 32.3 VOL% (42.0-52.0); Hemoglobin 9.9 GM/DL (14.0-18.0); Immature Granulocytes % 0.3 %; Immature Granulocytes Absolute 0.03 #; Lymphocytes # 1.8 10*3/uL (1.4-4.0); Lymphocytes % 18.3 % (21.2-54.2); Mean Corpuscular HGB Conc 30.7 GM/DL (32-36); Mean Corpuscular Volume 95.3 FL (87-102); Mean Platelet Volume 10.4 FL (9.6-12.0); Monocytes # 0.6 10*3/uL (0.11-0.8); Monocytes % 5.7 % (1.7-12.7); Neutrophils % 74.8 % (38.7-73.9); Platelet Count 445 T/CUMM (130-400); Red Blood Count 3.39 MC/CUMM (3.8-5.5); Red Cell Distribution Width 13.7 % (9.3-17.3); White Blood Count 9.7 T/CUMM (4-12)
[2022-01-08 05:32] LABS: Calcium 9.3 MG/DL (8.5-10.1); Osmolality,Calculated 276.5 MOS/KG (273-304); Potassium 3.5 MMOL/L (3.5-5.1)
[2022-01-08] MEDS: ONDANSETRON 4 MG/2 ML VIAL IV PRN (06:14)
[2022-01-08] MEDS: INSULIN REGULAR 100 UNIT/ML SUBCUT SCH ×3 (07:22→16:20)
[2022-01-08] MEDS ORDERED: MAGNESIUM SULF RIDER 2 GM/50 ML PREMIX IV ONE (09:07)
[2022-01-08] MEDS: ASPIRIN 325 MG TABLET PO SCH (10:12)
[2022-01-08] MEDS: VANCOMYCIN INJ 1,000 MG in SODIUM CHLORIDE 0.9% 250 ML IV SCH (10:13)
[2022-01-08] MEDS: ATORVASTATIN 40 MG TABLET PO SCH (10:13)
[2022-01-08] MEDS: atenoloL 50 MG TABLET PO SCH (10:13)
[2022-01-08] MEDS: PANTOPRAZOLE 40 MG TABLET PO SCH (10:13)
[2022-01-09] MEDS: HEPARIN DRIP 25,000 UNITS/500 ML PREMIX IV SCH ×2 (00:21→16:21)
[2022-01-09] MEDS: INSULIN REGULAR 100 UNIT/ML SUBCUT SCH ×5 (00:22→20:54)
[2022-01-09] MEDS: VANCOMYCIN INJ 1,000 MG in SODIUM CHLORIDE 0.9% 250 ML IV SCH ×2 (00:33→09:32)
[2022-01-09] MEDS: PIPERACILLIN/TAZOBACTAM 3,375 MG in SODIUM CHLORIDE 0.9% 100 ML IV SCH ×3 (05:15→20:53)
[2022-01-09 06:26] LABS: Basophils % 0.5 % (0.0-0.8); Eosinophils % 0.2 % (0.00-10.9); Hematocrit 32.4 VOL% (42.0-52.0); Hemoglobin 10.4 GM/DL (14.0-18.0); Immature Granulocytes % 0.7 %; Immature Granulocytes Absolute 0.06 #; Lymphocytes # 1.7 10*3/uL (1.4-4.0); Lymphocytes % 19.6 % (21.2-54.2); Mean Corpuscular HGB Conc 32.1 GM/DL (32-36); Mean Corpuscular Volume 92.3 FL (87-102); Mean Platelet Volume 10.1 FL (9.6-12.0); Monocytes # 0.6 10*3/uL (0.11-0.8); Platelet Count 441 T/CUMM (130-400); Red Blood Count 3.51 MC/CUMM (3.8-5.5); Red Cell Distribution Width 13.8 % (9.3-17.3); White Blood Count 8.8 T/CUMM (4-12)
[2022-01-09 06:52] LABS: Potassium 3.3 MMOL/L (3.5-5.1)
[2022-01-09] MEDS: atenoloL 50 MG TABLET PO SCH (09:32)
[2022-01-09] MEDS: ASPIRIN 325 MG TABLET PO SCH (09:32)
[2022-01-09] MEDS: PANTOPRAZOLE 40 MG TABLET PO SCH (09:32)
[2022-01-09] MEDS: ATORVASTATIN 40 MG TABLET PO SCH (09:32)
[2022-01-09] MEDS: POTASSIUM CHLORIDE 20 MEQ TABLET PO PRN ×3 (09:32→18:12)
[2022-01-10] MEDS: VANCOMYCIN INJ 1,000 MG in SODIUM CHLORIDE 0.9% 250 ML IV SCH ×2 (01:54→12:46)
[2022-01-10] MEDS: PIPERACILLIN/TAZOBACTAM 3,375 MG in SODIUM CHLORIDE 0.9% 100 ML IV SCH ×3 (04:07→21:16)
[2022-01-10 06:27] LABS: Basophils # 0.1 10*3/uL (0.0-0.2); Basophils % 0.8 % (0.0-0.8); Eosinophils % 0.3 % (0.00-10.9); Hematocrit 31.1 VOL% (42.0-52.0); Immature Granulocytes % 0.6 %; Immature Granulocytes Absolute 0.05 #; Lymphocytes # 2.1 10*3/uL (1.4-4.0); Lymphocytes % 23.8 % (21.2-54.2); Mean Corpuscular HGB Conc 32.2 GM/DL (32-36); Mean Corpuscular Volume 93.1 FL (87-102); Mean Platelet Volume 9.9 FL (9.6-12.0); Monocytes # 0.8 10*3/uL (0.11-0.8); Monocytes % 9.2 % (1.7-12.7); Neutrophils % 65.3 % (38.7-73.9); Platelet Count 388 T/CUMM (130-400); Red Blood Count 3.34 MC/CUMM (3.8-5.5); Red Cell Distribution Width 14.1 % (9.3-17.3); White Blood Count 8.7 T/CUMM (4-12)
[2022-01-10 07:02] LABS: Calcium 8.8 MG/DL (8.5-10.1); Osmolality,Calculated 272.8 MOS/KG (273-304); Potassium 3.8 MMOL/L (3.5-5.1)
[2022-01-10] MEDS: INSULIN REGULAR 100 UNIT/ML SUBCUT SCH ×4 (08:35→21:18)
[2022-01-10] MEDS ORDERED: fentaNYL 100 MCG/2 ML VIAL IV ONE (09:21)
[2022-01-10] MEDS ORDERED: DIAZEPAM 5 MG TABLET PO ONE (09:21)
[2022-01-10] MEDS ORDERED: MIDAZOLAM 2 MG/2 ML VIAL IV ONE (09:21)
[2022-01-10] MEDS ORDERED: HEPARIN/NACL 0.9% 2 UNITS/ML 2,000 UNIT/1,000 ML BAG IV ONE (09:23)
[2022-01-10] MEDS ORDERED: HEPARIN 5,000 UNIT/1 ML VIAL ONE (10:23)
[2022-01-10] MEDS ORDERED: HEPARIN 5,000 UNIT/1 ML VIAL IV ONE (10:50)
[2022-01-10] MEDS ORDERED: hydrALAZINE 20 MG/1 ML VIAL ONE (11:33)
[2022-01-10] MEDS ORDERED: hydrALAZINE 20 MG/1 ML VIAL IV ONE (11:46)
[2022-01-10] MEDS: DEXTROSE 5% LACTATED RINGERS 1,000 ML IV SCH (12:45)
[2022-01-10] MEDS: atenoloL 50 MG TABLET PO SCH (12:50)
[2022-01-10] MEDS: PANTOPRAZOLE 40 MG TABLET PO SCH (12:50)
[2022-01-10] MEDS: ATORVASTATIN 40 MG TABLET PO SCH (12:50)
[2022-01-10] MEDS: ASPIRIN 325 MG TABLET PO SCH (12:50)
[2022-01-10] MEDS: ASCORBIC ACID 500 MG TABLET PO SCH (21:17)
[2022-01-11] MEDS: VANCOMYCIN INJ 1,000 MG in SODIUM CHLORIDE 0.9% 250 ML IV SCH ×3 (01:44→21:50)
[2022-01-11 04:38] LABS: Basophils # 0.1 10*3/uL (0.0-0.2); Basophils % 0.6 % (0.0-0.8); Eosinophils % 0.2 % (0.00-10.9); Hematocrit 31.8 VOL% (42.0-52.0); Hemoglobin 10.1 GM/DL (14.0-18.0); Immature Granulocytes % 0.6 %; Immature Granulocytes Absolute 0.05 #; Lymphocytes # 1.8 10*3/uL (1.4-4.0); Lymphocytes % 22.1 % (21.2-54.2); Mean Corpuscular HGB Conc 31.8 GM/DL (32-36); Mean Corpuscular Volume 93.8 FL (87-102); Mean Platelet Volume 10.2 FL (9.6-12.0); Monocytes # 0.7 10*3/uL (0.11-0.8); Monocytes % 8.8 % (1.7-12.7); Neutrophils % 67.7 % (38.7-73.9); Platelet Count 399 T/CUMM (130-400); Red Blood Count 3.39 MC/CUMM (3.8-5.5); Red Cell Distribution Width 13.9 % (9.3-17.3); White Blood Count 8.3 T/CUMM (4-12)
[2022-01-11] MEDS: PIPERACILLIN/TAZOBACTAM 3,375 MG in SODIUM CHLORIDE 0.9% 100 ML IV SCH ×3 (04:42→21:51)
[2022-01-11 04:55] LABS: Calcium 8.7 MG/DL (8.5-10.1); Osmolality,Calculated 271.1 MOS/KG (273-304); Potassium 3.6 MMOL/L (3.5-5.1)
[2022-01-11] MEDS: ALBUTEROL/IPRATROPIUM 3 ML NEB RESP TX SCH (07:53)
[2022-01-11] MEDS: SODIUM CHLORIDE 0.45% 1,000 ML IV SCH ×2 (09:54→15:19)
[2022-01-11] MEDS: INSULIN REGULAR 100 UNIT/ML SUBCUT SCH ×4 (09:55→21:51)
[2022-01-11] MEDS ORDERED: MAGNESIUM SULF RIDER 2 GM/50 ML PREMIX IV ONE (11:00)
[2022-01-11] MEDS ORDERED: DEXTROSE 50% 25 GM/50 ML VIAL IV PRN (13:53)
[2022-01-11] MEDS ORDERED: GLUCAGON 1 MG VIAL IM PRN (13:53)
[2022-01-11] MEDS: PANTOPRAZOLE 40 MG TABLET PO SCH (14:59)
[2022-01-11] MEDS: atenoloL 50 MG TABLET PO SCH (14:59)
[2022-01-11] MEDS: ASCORBIC ACID 500 MG TABLET PO SCH ×2 (14:59→21:38)
[2022-01-11] MEDS: ATORVASTATIN 40 MG TABLET PO SCH (14:59)
[2022-01-11] MEDS: ASPIRIN 325 MG TABLET PO SCH (14:59)
[2022-01-11] MEDS: amLODIPine 10 MG TABLET PO SCH (14:59)
[2022-01-11] MEDS: DEXTROSE 5% LACTATED RINGERS 1,000 ML IV SCH (15:20)
[2022-01-12] MEDS: PIPERACILLIN/TAZOBACTAM 3,375 MG in SODIUM CHLORIDE 0.9% 100 ML IV SCH ×3 (04:50→21:50)
[2022-01-12 04:51] LABS: Basophils # 0.1 10*3/uL (0.0-0.2); Basophils % 0.5 % (0.0-0.8); Eosinophils # 0.1 10*3/uL (0.0-0.87); Eosinophils % 0.5 % (0.00-10.9); Hemoglobin 9.7 GM/DL (14.0-18.0); Immature Granulocytes % 0.4 %; Immature Granulocytes Absolute 0.04 #; Lymphocytes % 22.3 % (21.2-54.2); Mean Corpuscular HGB Conc 32.3 GM/DL (32-36); Mean Corpuscular Volume 94.6 FL (87-102); Monocytes # 0.6 10*3/uL (0.11-0.8); Monocytes % 6.5 % (1.7-12.7); Neutrophils % 69.8 % (38.7-73.9); Platelet Count 349 T/CUMM (130-400); Red Blood Count 3.17 MC/CUMM (3.8-5.5); Red Cell Distribution Width 13.8 % (9.3-17.3); White Blood Count 9.1 T/CUMM (4-12)
[2022-01-12 05:15] LABS: Calcium 8.9 MG/DL (8.5-10.1); Osmolality,Calculated 277.5 MOS/KG (273-304); Potassium 3.3 MMOL/L (3.5-5.1)
[2022-01-12] MEDS: ALBUTEROL/IPRATROPIUM 3 ML NEB RESP TX SCH (08:12)
[2022-01-12] MEDS: ASPIRIN 325 MG TABLET PO SCH (08:39)
[2022-01-12] MEDS: ASCORBIC ACID 500 MG TABLET PO SCH ×2 (08:39→21:49)
[2022-01-12] MEDS: PANTOPRAZOLE 40 MG TABLET PO SCH (08:39)
[2022-01-12] MEDS: ATORVASTATIN 40 MG TABLET PO SCH (08:40)
[2022-01-12] MEDS: atenoloL 50 MG TABLET PO SCH (08:40)
[2022-01-12] MEDS: amLODIPine 10 MG TABLET PO SCH (08:40)
[2022-01-12] MEDS: INSULIN REGULAR 100 UNIT/ML SUBCUT SCH ×4 (09:22→21:51)
[2022-01-12] MEDS: VANCOMYCIN INJ 1,000 MG in SODIUM CHLORIDE 0.9% 250 ML IV SCH (09:25)
[2022-01-12] MEDS ORDERED: POTASSIUM CHLORIDE 20 MEQ TABLET PO ONE (11:00)
[2022-01-12] MEDS: HEPARIN 5,000 UNIT/1 ML VIAL SUBCUT SCH (21:53)
[2022-01-13] MEDS: VANCOMYCIN INJ 1,000 MG in SODIUM CHLORIDE 0.9% 250 ML IV SCH ×2 (04:40→21:06)
[2022-01-13] MEDS: PIPERACILLIN/TAZOBACTAM 3,375 MG in SODIUM CHLORIDE 0.9% 100 ML IV SCH ×3 (05:00→21:03)
[2022-01-13 05:24] LABS: Basophils % 0.4 % (0.0-0.8); Eosinophils % 0.2 % (0.00-10.9); Hematocrit 29.9 VOL% (42.0-52.0); Hemoglobin 9.6 GM/DL (14.0-18.0); Immature Granulocytes % 0.7 %; Immature Granulocytes Absolute 0.07 #; Lymphocytes # 2.4 10*3/uL (1.4-4.0); Lymphocytes % 25.9 % (21.2-54.2); Mean Corpuscular HGB Conc 32.1 GM/DL (32-36); Mean Corpuscular Volume 94.6 FL (87-102); Mean Platelet Volume 10.2 FL (9.6-12.0); Monocytes # 0.5 10*3/uL (0.11-0.8); Monocytes % 5.5 % (1.7-12.7); Neutrophils % 67.3 % (38.7-73.9); Platelet Count 348 T/CUMM (130-400); Red Blood Count 3.16 MC/CUMM (3.8-5.5); Red Cell Distribution Width 13.9 % (9.3-17.3); White Blood Count 9.4 T/CUMM (4-12)
[2022-01-13 05:42] LABS: Osmolality,Calculated 282.3 MOS/KG (273-304); Potassium 3.7 MMOL/L (3.5-5.1)
[2022-01-13] MEDS: ALBUTEROL/IPRATROPIUM 3 ML NEB RESP TX SCH (08:04)
[2022-01-13] MEDS: PANTOPRAZOLE 40 MG VIAL IV SCH (10:08)
[2022-01-13] MEDS ORDERED: ROCURONIUM 50 MG/5 ML VIAL IV ONE (10:21)
[2022-01-13] MEDS ORDERED: LIDOCAINE 2% 5 ML VIAL ONE (10:21)
[2022-01-13] MEDS ORDERED: DESFLURANE 1 UNIT/15 MINUTE INH ONE ×2 (10:21→13:52)
[2022-01-13] MEDS ORDERED: propofoL 200 MG/20 ML VIAL IV ONE (10:21)
[2022-01-13] MEDS ORDERED: fentaNYL 100 MCG/2 ML VIAL ONE (10:24)
[2022-01-13] MEDS ORDERED: KETAMINE 500 MG/10 ML VIAL ONE (10:25)
[2022-01-13] MEDS ORDERED: HEPARIN 5,000 UNIT/1 ML VIAL ONE ×2 (10:25→11:17)
[2022-01-13] MEDS ORDERED: ONDANSETRON 4 MG/2 ML VIAL ONE (11:25)
[2022-01-13] MEDS: ASPIRIN 325 MG TABLET PO SCH (11:40)
[2022-01-13] MEDS: INSULIN REGULAR 100 UNIT/ML SUBCUT SCH ×3 (11:40→20:54)
[2022-01-13] MEDS: ASCORBIC ACID 500 MG TABLET PO SCH ×2 (11:41→20:53)
[2022-01-13] MEDS: amLODIPine 10 MG TABLET PO SCH (11:41)
[2022-01-13] MEDS: ATORVASTATIN 40 MG TABLET PO SCH (11:41)
[2022-01-13] MEDS: atenoloL 50 MG TABLET PO SCH (11:41)
[2022-01-13] MEDS ORDERED: HEPARIN 10,000 UNIT/10 ML VIAL ONE (11:52)
[2022-01-13] MEDS ORDERED: TISSUE ADHESIVE 1 EACH APPLICATOR TOP ONE ×2 (12:19→13:06)
[2022-01-13] MEDS ORDERED: NEOSTIGMINE 10 MG/10 ML VIAL ONE (13:03)
[2022-01-13] MEDS ORDERED: GLYCOPYRROLATE 0.4 MG/2 ML VIAL ONE (13:03)
[2022-01-13] MEDS ORDERED: HYDROmorphone 1 MG/1 ML SYRINGE ONE (13:44)
[2022-01-14] MEDS ORDERED: MORPHINE 2 MG/1 ML SYRINGE IV PRN ×2 (00:27)
[2022-01-14] MEDS: PIPERACILLIN/TAZOBACTAM 3,375 MG in SODIUM CHLORIDE 0.9% 100 ML IV SCH (04:35)
[2022-01-14 05:32] LABS: Basophils % 0.3 % (0.0-0.8); Eosinophils % 0.3 % (0.00-10.9); Hematocrit 24.1 VOL% (42.0-52.0); Hemoglobin 7.6 GM/DL (14.0-18.0); Immature Granulocytes % 0.5 %; Immature Granulocytes Absolute 0.06 #; Lymphocytes # 2.4 10*3/uL (1.4-4.0); Lymphocytes % 20.4 % (21.2-54.2); Mean Corpuscular HGB Conc 31.5 GM/DL (32-36); Mean Corpuscular Volume 95.6 FL (87-102); Mean Platelet Volume 9.9 FL (9.6-12.0); Monocytes # 0.5 10*3/uL (0.11-0.8); Monocytes % 4.3 % (1.7-12.7); Neutrophils % 74.2 % (38.7-73.9); Platelet Count 294 T/CUMM (130-400); Red Blood Count 2.52 MC/CUMM (3.8-5.5); Red Cell Distribution Width 14.2 % (9.3-17.3); White Blood Count 11.9 T/CUMM (4-12)
[2022-01-14 05:55] LABS: Calcium 8.6 MG/DL (8.5-10.1); Osmolality,Calculated 287.8 MOS/KG (273-304); Platelet Estimate Normal; Potassium 3.5 MMOL/L (3.5-5.1)
[2022-01-14] MEDS: POTASSIUM CHLORIDE 20 MEQ TABLET PO PRN (06:06)
[2022-01-14] MEDS: ALBUTEROL/IPRATROPIUM 3 ML NEB RESP TX SCH (06:52)
[2022-01-14] MEDS: PANTOPRAZOLE 40 MG VIAL IV SCH (09:04)
[2022-01-14] MEDS: ATORVASTATIN 40 MG TABLET PO SCH (09:04)
[2022-01-14] MEDS: atenoloL 50 MG TABLET PO SCH (09:05)
[2022-01-14] MEDS: ASPIRIN 325 MG TABLET PO SCH (09:05)
[2022-01-14] MEDS: amLODIPine 10 MG TABLET PO SCH (09:05)
[2022-01-14] MEDS: ASCORBIC ACID 500 MG TABLET PO SCH ×2 (09:05→21:05)
[2022-01-14] MEDS: INSULIN REGULAR 100 UNIT/ML SUBCUT SCH ×4 (11:12→21:05)
[2022-01-14] MEDS: HEPARIN 5,000 UNIT/1 ML VIAL SUBCUT SCH (11:13)
[2022-01-14] MEDS ORDERED: SODIUM CHLORIDE 0.9% 1,000 ML IV PRN (12:04)
[2022-01-14] MEDS: VANCOMYCIN INJ 1,000 MG in SODIUM CHLORIDE 0.9% 250 ML IV SCH (21:05)
[2022-01-15 05:22] LABS: Basophils % 0.2 % (0.0-0.8); Eosinophils % 0.3 % (0.00-10.9); Hematocrit 30.4 VOL% (42.0-52.0); Hemoglobin 9.9 GM/DL (14.0-18.0); Immature Granulocytes % 0.8 %; Immature Granulocytes Absolute 0.12 #; Lymphocytes # 2.3 10*3/uL (1.4-4.0); Lymphocytes % 16.2 % (21.2-54.2); Mean Corpuscular HGB Conc 32.6 GM/DL (32-36); Mean Corpuscular Volume 91.6 FL (87-102); Mean Platelet Volume 10.3 FL (9.6-12.0); Monocytes # 0.7 10*3/uL (0.11-0.8); Monocytes % 4.5 % (1.7-12.7); Platelet Count 278 T/CUMM (130-400); Red Blood Count 3.32 MC/CUMM (3.8-5.5); Red Cell Distribution Width 15.1 % (9.3-17.3); White Blood Count 14.3 T/CUMM (4-12)
[2022-01-15 05:47] LABS: Osmolality,Calculated 285.1 MOS/KG (273-304)
[2022-01-15] MEDS: ALBUTEROL/IPRATROPIUM 3 ML NEB RESP TX SCH ×3 (07:50→19:55)
[2022-01-15] MEDS: atenoloL 50 MG TABLET PO SCH (10:04)
[2022-01-15] MEDS: ATORVASTATIN 40 MG TABLET PO SCH (10:04)
[2022-01-15] MEDS: ASPIRIN 325 MG TABLET PO SCH (10:04)
[2022-01-15] MEDS: ASCORBIC ACID 500 MG TABLET PO SCH ×2 (10:04→22:06)
[2022-01-15] MEDS: PANTOPRAZOLE 40 MG VIAL IV SCH (10:04)
[2022-01-15] MEDS: amLODIPine 10 MG TABLET PO SCH (10:04)
[2022-01-15] MEDS: INSULIN REGULAR 100 UNIT/ML SUBCUT SCH ×4 (10:05→22:07)
[2022-01-15] MEDS ORDERED: FUROSEMIDE 40 MG/4 ML VIAL IV ONE (13:50)
[2022-01-15] MEDS: VANCOMYCIN INJ 1,000 MG in SODIUM CHLORIDE 0.9% 250 ML IV SCH (22:07)
[2022-01-16] MEDS: ALBUTEROL/IPRATROPIUM 3 ML NEB RESP TX SCH ×4 (00:55→19:07)
[2022-01-16 05:25] LABS: Basophils % 0.3 % (0.0-0.8); Eosinophils # 0.1 10*3/uL (0.0-0.87); Eosinophils % 0.7 % (0.00-10.9); Hematocrit 30.6 VOL% (42.0-52.0); Hemoglobin 9.8 GM/DL (14.0-18.0); Immature Granulocytes % 0.7 %; Immature Granulocytes Absolute 0.08 #; Lymphocytes # 2.6 10*3/uL (1.4-4.0); Lymphocytes % 22.4 % (21.2-54.2); Mean Corpuscular Volume 92.4 FL (87-102); Mean Platelet Volume 10.3 FL (9.6-12.0); Monocytes # 0.5 10*3/uL (0.11-0.8); Monocytes % 4.4 % (1.7-12.7); Neutrophils % 71.5 % (38.7-73.9); Platelet Count 285 T/CUMM (130-400); Red Blood Count 3.31 MC/CUMM (3.8-5.5); Red Cell Distribution Width 14.8 % (9.3-17.3); White Blood Count 11.5 T/CUMM (4-12)
[2022-01-16 06:01] LABS: Calcium 8.8 MG/DL (8.5-10.1); Potassium 3.5 MMOL/L (3.5-5.1)
[2022-01-16] MEDS ORDERED: MAGNESIUM SULF RIDER 2 GM/50 ML PREMIX IV ONE (08:00)
[2022-01-16] MEDS: ASPIRIN 325 MG TABLET PO SCH (09:33)
[2022-01-16] MEDS: atenoloL 50 MG TABLET PO SCH (09:33)
[2022-01-16] MEDS: ENOXAPARIN 40 MG/0.4 ML SYRINGE SUBCUT SCH (09:33)
[2022-01-16] MEDS: amLODIPine 10 MG TABLET PO SCH (09:33)
[2022-01-16] MEDS: ATORVASTATIN 40 MG TABLET PO SCH (09:33)
[2022-01-16] MEDS: INSULIN REGULAR 100 UNIT/ML SUBCUT SCH ×4 (09:34→21:50)
[2022-01-16] MEDS: PANTOPRAZOLE 40 MG VIAL IV SCH (09:34)
[2022-01-16] MEDS: ASCORBIC ACID 500 MG TABLET PO SCH ×2 (13:26→21:49)
[2022-01-16] MEDS: VANCOMYCIN INJ 1,000 MG in SODIUM CHLORIDE 0.9% 250 ML IV SCH (21:49)
[2022-01-17] MEDS: ALBUTEROL/IPRATROPIUM 3 ML NEB RESP TX SCH ×4 (00:48→19:30)
[2022-01-17 06:20] LABS: Basophils % 0.3 % (0.0-0.8); Eosinophils # 0.1 10*3/uL (0.0-0.87); Eosinophils % 0.8 % (0.00-10.9); Hematocrit 28.7 VOL% (42.0-52.0); Hemoglobin 9.3 GM/DL (14.0-18.0); Immature Granulocytes % 0.6 %; Immature Granulocytes Absolute 0.05 #; Lymphocytes % 22.5 % (21.2-54.2); Mean Corpuscular HGB Conc 32.4 GM/DL (32-36); Mean Corpuscular Volume 92.3 FL (87-102); Mean Platelet Volume 10.1 FL (9.6-12.0); Monocytes # 0.4 10*3/uL (0.11-0.8); Monocytes % 4.6 % (1.7-12.7); Neutrophils % 71.2 % (38.7-73.9); Platelet Count 298 T/CUMM (130-400); Red Blood Count 3.11 MC/CUMM (3.8-5.5); Red Cell Distribution Width 14.7 % (9.3-17.3); White Blood Count 8.9 T/CUMM (4-12)
[2022-01-17 06:44] LABS: Calcium 8.1 MG/DL (8.5-10.1); Osmolality,Calculated 288.4 MOS/KG (273-304); Potassium 3.4 MMOL/L (3.5-5.1)
[2022-01-17] MEDS: ASPIRIN 325 MG TABLET PO SCH (09:42)
[2022-01-17] MEDS: DOCUSATE SODIUM 100 MG CAPSULE PO PRN (09:42)
[2022-01-17] MEDS: ASCORBIC ACID 500 MG TABLET PO SCH ×2 (09:42→22:20)
[2022-01-17] MEDS: ATORVASTATIN 40 MG TABLET PO SCH (09:42)
[2022-01-17] MEDS: ENOXAPARIN 40 MG/0.4 ML SYRINGE SUBCUT SCH (09:43)
[2022-01-17] MEDS: PANTOPRAZOLE 40 MG VIAL IV SCH (09:43)
[2022-01-17] MEDS: atenoloL 50 MG TABLET PO SCH (09:44)
[2022-01-17] MEDS: amLODIPine 10 MG TABLET PO SCH (09:48)
[2022-01-17] MEDS: INSULIN REGULAR 100 UNIT/ML SUBCUT SCH ×4 (09:49→22:22)
[2022-01-17] MEDS: cloNIDine 0.2 MG/24 HR PATCH TRANSDERM SCH (09:50)
[2022-01-17] MEDS: VANCOMYCIN INJ 1,000 MG in SODIUM CHLORIDE 0.9% 250 ML IV SCH (22:21)
[2022-01-18] MEDS: ALBUTEROL/IPRATROPIUM 3 ML NEB RESP TX SCH ×4 (00:50→19:40)
[2022-01-18] MEDS: INSULIN REGULAR 100 UNIT/ML SUBCUT SCH (07:06)
[2022-01-18 08:45] LABS: Basophils # 0.1 10*3/uL (0.0-0.2); Basophils % 0.5 % (0.0-0.8); Eosinophils # 0.1 10*3/uL (0.0-0.87); Eosinophils % 0.8 % (0.00-10.9); Hematocrit 28.4 VOL% (42.0-52.0); Hemoglobin 9.1 GM/DL (14.0-18.0); Immature Granulocytes % 0.5 %; Immature Granulocytes Absolute 0.05 #; Lymphocytes # 2.5 10*3/uL (1.4-4.0); Lymphocytes % 22.8 % (21.2-54.2); Mean Corpuscular Volume 93.4 FL (87-102); Monocytes # 0.6 10*3/uL (0.11-0.8); Monocytes % 5.6 % (1.7-12.7); Neutrophils % 69.8 % (38.7-73.9); Platelet Count 319 T/CUMM (130-400); Red Blood Count 3.04 MC/CUMM (3.8-5.5); Red Cell Distribution Width 14.9 % (9.3-17.3); White Blood Count 10.8 T/CUMM (4-12)
[2022-01-18 09:12] LABS: Calcium 8.4 MG/DL (8.5-10.1); Osmolality,Calculated 288.1 MOS/KG (273-304); Potassium 3.6 MMOL/L (3.5-5.1)
[2022-01-18] MEDS: atenoloL 50 MG TABLET PO SCH (11:00)
[2022-01-18] MEDS: amLODIPine 10 MG TABLET PO SCH (11:00)
[2022-01-18] MEDS: ASPIRIN 325 MG TABLET PO SCH (11:00)
[2022-01-18] MEDS: ASCORBIC ACID 500 MG TABLET PO SCH ×2 (11:01→20:43)
[2022-01-18] MEDS: ATORVASTATIN 40 MG TABLET PO SCH (11:01)
[2022-01-18] MEDS: ENOXAPARIN 40 MG/0.4 ML SYRINGE SUBCUT SCH (11:02)
[2022-01-18] MEDS: PANTOPRAZOLE 40 MG VIAL IV SCH (11:03)
[2022-01-18] MEDS: VANCOMYCIN INJ 1,000 MG in SODIUM CHLORIDE 0.9% 250 ML IV SCH (20:48)
[2022-01-19] MEDS: ALBUTEROL/IPRATROPIUM 3 ML NEB RESP TX SCH ×4 (01:10→19:56)
[2022-01-19 05:21] LABS: Basophils # 0.1 10*3/uL (0.0-0.2); Basophils % 0.5 % (0.0-0.8); Eosinophils # 0.1 10*3/uL (0.0-0.87); Eosinophils % 0.9 % (0.00-10.9); Hematocrit 25.6 VOL% (42.0-52.0); Hemoglobin 8.1 GM/DL (14.0-18.0); Immature Granulocytes % 0.7 %; Immature Granulocytes Absolute 0.07 #; Lymphocytes # 2.4 10*3/uL (1.4-4.0); Lymphocytes % 22.7 % (21.2-54.2); Mean Corpuscular HGB Conc 31.6 GM/DL (32-36); Mean Corpuscular Volume 94.8 FL (87-102); Mean Platelet Volume 10.5 FL (9.6-12.0); Monocytes # 0.6 10*3/uL (0.11-0.8); Monocytes % 5.8 % (1.7-12.7); Neutrophils % 69.4 % (38.7-73.9); Platelet Count 324 T/CUMM (130-400); Red Cell Distribution Width 14.8 % (9.3-17.3); White Blood Count 10.6 T/CUMM (4-12)
[2022-01-19 05:38] LABS: Calcium 8.3 MG/DL (8.5-10.1); Osmolality,Calculated 285.3 MOS/KG (273-304); Potassium 3.5 MMOL/L (3.5-5.1)
[2022-01-19] MEDS: ENOXAPARIN 40 MG/0.4 ML SYRINGE SUBCUT SCH (09:16)
[2022-01-19] MEDS: ATORVASTATIN 40 MG TABLET PO SCH (09:16)
[2022-01-19] MEDS: amLODIPine 10 MG TABLET PO SCH (09:16)
[2022-01-19] MEDS: ASCORBIC ACID 500 MG TABLET PO SCH ×2 (09:16→21:05)
[2022-01-19] MEDS: ASPIRIN 325 MG TABLET PO SCH (09:16)
[2022-01-19] MEDS: atenoloL 50 MG TABLET PO SCH (09:16)
[2022-01-19] MEDS: PANTOPRAZOLE 40 MG VIAL IV SCH (09:17)
[2022-01-19] MEDS: VANCOMYCIN INJ 1,000 MG in SODIUM CHLORIDE 0.9% 250 ML IV SCH (21:04)
[2022-01-19] MEDS: POTASSIUM CHLORIDE 20 MEQ TABLET PO PRN ×2 (21:05→22:47)
[2022-01-20] MEDS: ALBUTEROL/IPRATROPIUM 3 ML NEB RESP TX SCH ×4 (00:52→19:42)
[2022-01-20 05:40] LABS: Basophils # 0.1 10*3/uL (0.0-0.2); Basophils % 0.5 % (0.0-0.8); Eosinophils # 0.1 10*3/uL (0.0-0.87); Eosinophils % 1.3 % (0.00-10.9); Hematocrit 26.8 VOL% (42.0-52.0); Hemoglobin 8.5 GM/DL (14.0-18.0); Immature Granulocytes % 0.6 %; Immature Granulocytes Absolute 0.06 #; Lymphocytes # 2.2 10*3/uL (1.4-4.0); Lymphocytes % 23.1 % (21.2-54.2); Mean Corpuscular HGB Conc 31.7 GM/DL (32-36); Mean Corpuscular Volume 94.4 FL (87-102); Mean Platelet Volume 9.9 FL (9.6-12.0); Monocytes # 0.5 10*3/uL (0.11-0.8); Neutrophils % 69.5 % (38.7-73.9); Platelet Count 341 T/CUMM (130-400); Red Blood Count 2.84 MC/CUMM (3.8-5.5); Red Cell Distribution Width 14.9 % (9.3-17.3); White Blood Count 9.7 T/CUMM (4-12)
[2022-01-20 05:57] LABS: Calcium 8.2 MG/DL (8.5-10.1); Potassium 3.9 MMOL/L (3.5-5.1)
[2022-01-20] MEDS: ASCORBIC ACID 500 MG TABLET PO SCH ×2 (08:11→21:03)
[2022-01-20] MEDS: atenoloL 50 MG TABLET PO SCH (08:12)
[2022-01-20] MEDS: amLODIPine 10 MG TABLET PO SCH (08:12)
[2022-01-20] MEDS: ATORVASTATIN 40 MG TABLET PO SCH (08:12)
[2022-01-20] MEDS: ENOXAPARIN 40 MG/0.4 ML SYRINGE SUBCUT SCH (08:12)
[2022-01-20] MEDS: ASPIRIN 325 MG TABLET PO SCH (08:12)
[2022-01-20] MEDS: PANTOPRAZOLE 40 MG VIAL IV SCH (08:18)
[2022-01-20] MEDS: INSULIN REGULAR 100 UNIT/ML SUBCUT SCH ×3 (11:53→21:02)
[2022-01-20] MEDS: MUPIROCIN 2% OINT 22 GM TUBE TOP SCH ×2 (11:56→21:02)
[2022-01-20] MEDS: VANCOMYCIN INJ 1,000 MG in SODIUM CHLORIDE 0.9% 250 ML IV SCH (21:02)
[2022-01-21] MEDS: ALBUTEROL/IPRATROPIUM 3 ML NEB RESP TX SCH ×5 (00:55→23:21)
[2022-01-21 05:10] LABS: Basophils # 0.1 10*3/uL (0.0-0.2); Basophils % 0.7 % (0.0-0.8); Eosinophils # 0.1 10*3/uL (0.0-0.87); Eosinophils % 1.2 % (0.00-10.9); Hematocrit 26.4 VOL% (42.0-52.0); Hemoglobin 8.4 GM/DL (14.0-18.0); Immature Granulocytes % 0.5 %; Immature Granulocytes Absolute 0.05 #; Lymphocytes # 2.6 10*3/uL (1.4-4.0); Lymphocytes % 27.7 % (21.2-54.2); Mean Corpuscular HGB Conc 31.8 GM/DL (32-36); Mean Platelet Volume 10.2 FL (9.6-12.0); Monocytes # 0.6 10*3/uL (0.11-0.8); Monocytes % 6.3 % (1.7-12.7); Neutrophils % 63.6 % (38.7-73.9); Platelet Count 360 T/CUMM (130-400); Red Blood Count 2.81 MC/CUMM (3.8-5.5); Red Cell Distribution Width 14.8 % (9.3-17.3); White Blood Count 9.5 T/CUMM (4-12)
[2022-01-21 05:26] LABS: Calcium 8.3 MG/DL (8.5-10.1); Potassium 3.9 MMOL/L (3.5-5.1)
[2022-01-21 05:33] LABS: Platelet Estimate Adequate
[2022-01-21] MEDS: INSULIN REGULAR 100 UNIT/ML SUBCUT SCH ×4 (08:23→21:41)
[2022-01-21] MEDS: MUPIROCIN 2% OINT 22 GM TUBE TOP SCH ×2 (11:32→21:56)
[2022-01-21] MEDS: ASPIRIN 325 MG TABLET PO SCH (11:32)
[2022-01-21] MEDS: ENOXAPARIN 40 MG/0.4 ML SYRINGE SUBCUT SCH (11:32)
[2022-01-21] MEDS: ATORVASTATIN 40 MG TABLET PO SCH (11:32)
[2022-01-21] MEDS: amLODIPine 10 MG TABLET PO SCH (11:32)
[2022-01-21] MEDS: atenoloL 50 MG TABLET PO SCH (11:33)
[2022-01-21] MEDS: ASCORBIC ACID 500 MG TABLET PO SCH ×2 (11:33→21:49)
[2022-01-21] MEDS: PANTOPRAZOLE 40 MG VIAL IV SCH (11:33)
[2022-01-21] MEDS ORDERED: BISACODYL 5 MG TABLET PO ONE (12:51)
[2022-01-21] MEDS ORDERED: SODIUM PHOSPHATE ENEMA 133 ML BOTTLE RECTAL PRN (12:51)
[2022-01-21] MEDS ORDERED: ALBUTEROL 2.5 MG/3 ML NEB RESP TX ONE (13:15)
[2022-01-21] MEDS: VANCOMYCIN INJ 1,000 MG in SODIUM CHLORIDE 0.9% 250 ML IV SCH (21:50)
[2022-01-21] MEDS: DOCUSATE SODIUM 100 MG CAPSULE PO PRN (21:50)
[2022-01-22 04:51] LABS: Basophils # 0.1 10*3/uL (0.0-0.2); Basophils % 0.8 % (0.0-0.8); Eosinophils # 0.1 10*3/uL (0.0-0.87); Eosinophils % 1.2 % (0.00-10.9); Hematocrit 26.6 VOL% (42.0-52.0); Hemoglobin 8.2 GM/DL (14.0-18.0); Immature Granulocytes % 0.5 %; Immature Granulocytes Absolute 0.05 #; Lymphocytes # 2.1 10*3/uL (1.4-4.0); Lymphocytes % 21.4 % (21.2-54.2); Mean Corpuscular HGB Conc 30.8 GM/DL (32-36); Mean Platelet Volume 10.1 FL (9.6-12.0); Monocytes # 0.6 10*3/uL (0.11-0.8); Monocytes % 6.1 % (1.7-12.7); Platelet Count 397 T/CUMM (130-400); White Blood Count 9.8 T/CUMM (4-12)
[2022-01-22 05:04] LABS: Calcium 8.2 MG/DL (8.5-10.1); Osmolality,Calculated 279.4 MOS/KG (273-304); Potassium 3.4 MMOL/L (3.5-5.1)
[2022-01-22] MEDS ORDERED: IPRATROPIUM 500 MCG/2.5 ML NEB RESP TX ONE ×6 (05:27→23:54)
[2022-01-22] MEDS ORDERED: ALBUTEROL 2.5 MG/3 ML NEB RESP TX ONE ×6 (05:27→23:54)
[2022-01-22] MEDS ORDERED: POTASSIUM CHLORIDE 20 MEQ TABLET PO ONE (07:47)
[2022-01-22] MEDS: ALBUTEROL/IPRATROPIUM 3 ML NEB RESP TX SCH ×3 (07:58→20:02)
[2022-01-22] MEDS: SULFAMETHOX/TRIMETHOPRIM 800-160 MG TABLET PO SCH ×2 (10:31→20:47)
[2022-01-22] MEDS: atenoloL 50 MG TABLET PO SCH (10:31)
[2022-01-22] MEDS: ATORVASTATIN 40 MG TABLET PO SCH (10:31)
[2022-01-22] MEDS: PANTOPRAZOLE 40 MG VIAL IV SCH (10:31)
[2022-01-22] MEDS: ASCORBIC ACID 500 MG TABLET PO SCH ×2 (10:31→20:47)
[2022-01-22] MEDS: ASPIRIN 325 MG TABLET PO SCH (10:32)
[2022-01-22] MEDS: ENOXAPARIN 40 MG/0.4 ML SYRINGE SUBCUT SCH (10:32)
[2022-01-22] MEDS: amLODIPine 10 MG TABLET PO SCH (10:33)
[2022-01-22] MEDS: INSULIN REGULAR 100 UNIT/ML SUBCUT SCH ×4 (10:33→22:30)
[2022-01-22] MEDS: MUPIROCIN 2% OINT 22 GM TUBE TOP SCH ×2 (10:33→20:47)
[2022-01-22] MEDS: DOCUSATE SODIUM 100 MG CAPSULE PO PRN (20:51)
[2022-01-23] MEDS: ALBUTEROL/IPRATROPIUM 3 ML NEB RESP TX SCH ×4 (00:12→20:01)
[2022-01-23 05:07] LABS: Basophils # 0.1 10*3/uL (0.0-0.2); Basophils % 0.8 % (0.0-0.8); Eosinophils # 0.1 10*3/uL (0.0-0.87); Eosinophils % 1.4 % (0.00-10.9); Hematocrit 25.3 VOL% (42.0-52.0); Hemoglobin 8.1 GM/DL (14.0-18.0); Immature Granulocytes % 0.6 %; Immature Granulocytes Absolute 0.05 #; Lymphocytes # 2.1 10*3/uL (1.4-4.0); Lymphocytes % 24.6 % (21.2-54.2); Mean Corpuscular Volume 94.1 FL (87-102); Mean Platelet Volume 10.2 FL (9.6-12.0); Monocytes # 0.5 10*3/uL (0.11-0.8); Monocytes % 6.2 % (1.7-12.7); Neutrophils % 66.4 % (38.7-73.9); Platelet Count 417 T/CUMM (130-400); Red Blood Count 2.69 MC/CUMM (3.8-5.5); White Blood Count 8.7 T/CUMM (4-12)
[2022-01-23 05:43] LABS: Calcium 8.5 MG/DL (8.5-10.1); Osmolality,Calculated 283.1 MOS/KG (273-304); Potassium 3.9 MMOL/L (3.5-5.1)
[2022-01-23] MEDS ORDERED: IPRATROPIUM 500 MCG/2.5 ML NEB RESP TX ONE ×2 (07:19→10:59)
[2022-01-23] MEDS ORDERED: ALBUTEROL 2.5 MG/3 ML NEB RESP TX ONE ×2 (07:19→10:58)
[2022-01-23] MEDS: SULFAMETHOX/TRIMETHOPRIM 800-160 MG TABLET PO SCH ×2 (10:54→21:25)
[2022-01-23] MEDS: ASPIRIN 325 MG TABLET PO SCH (10:54)
[2022-01-23] MEDS: DOCUSATE SODIUM 100 MG CAPSULE PO PRN (10:54)
[2022-01-23] MEDS: ASCORBIC ACID 500 MG TABLET PO SCH ×2 (10:55→21:25)
[2022-01-23] MEDS: ATORVASTATIN 40 MG TABLET PO SCH (10:55)
[2022-01-23] MEDS: atenoloL 50 MG TABLET PO SCH (10:55)
[2022-01-23] MEDS: INSULIN REGULAR 100 UNIT/ML SUBCUT SCH ×4 (10:55→21:25)
[2022-01-23] MEDS: amLODIPine 10 MG TABLET PO SCH (10:55)
[2022-01-23] MEDS: ENOXAPARIN 40 MG/0.4 ML SYRINGE SUBCUT SCH (10:57)
[2022-01-23] MEDS: MUPIROCIN 2% OINT 22 GM TUBE TOP SCH ×2 (10:57→21:25)
[2022-01-23] MEDS: PANTOPRAZOLE 40 MG VIAL IV SCH (11:00)
[2022-01-24] MEDS: ALBUTEROL/IPRATROPIUM 3 ML NEB RESP TX SCH ×4 (01:37→20:38)
[2022-01-24 06:22] LABS: Calcium 8.3 MG/DL (8.5-10.1); Osmolality,Calculated 281.1 MOS/KG (273-304); Potassium 3.8 MMOL/L (3.5-5.1)
[2022-01-24] MEDS: INSULIN REGULAR 100 UNIT/ML SUBCUT SCH ×4 (07:22→21:05)
[2022-01-24] MEDS: atenoloL 50 MG TABLET PO SCH (09:10)
[2022-01-24] MEDS: ATORVASTATIN 40 MG TABLET PO SCH (09:10)
[2022-01-24] MEDS: ENOXAPARIN 40 MG/0.4 ML SYRINGE SUBCUT SCH (09:10)
[2022-01-24] MEDS: SULFAMETHOX/TRIMETHOPRIM 800-160 MG TABLET PO SCH ×2 (09:10→21:40)
[2022-01-24] MEDS: ASPIRIN 325 MG TABLET PO SCH (09:10)
[2022-01-24] MEDS: PANTOPRAZOLE 40 MG VIAL IV SCH (09:10)
[2022-01-24] MEDS: ASCORBIC ACID 500 MG TABLET PO SCH ×2 (09:10→21:40)
[2022-01-24] MEDS: amLODIPine 10 MG TABLET PO SCH (09:11)
[2022-01-24] MEDS: cloNIDine 0.2 MG/24 HR PATCH TRANSDERM SCH (09:11)
[2022-01-24] MEDS: MUPIROCIN 2% OINT 22 GM TUBE TOP SCH ×2 (09:12→21:41)
[2022-01-25] MEDS: ALBUTEROL/IPRATROPIUM 3 ML NEB RESP TX SCH ×4 (01:06→19:09)
[2022-01-25] MEDS: INSULIN REGULAR 100 UNIT/ML SUBCUT SCH ×4 (08:26→22:01)
[2022-01-25 08:46] LABS: Basophils # 0.1 10*3/uL (0.0-0.2); Basophils % 1.1 % (0.0-0.8); Eosinophils # 0.1 10*3/uL (0.0-0.87); Eosinophils % 1.2 % (0.00-10.9); Hematocrit 23.9 VOL% (42.0-52.0); Hemoglobin 7.4 GM/DL (14.0-18.0); Immature Granulocytes % 0.6 %; Immature Granulocytes Absolute 0.05 #; Lymphocytes # 2.7 10*3/uL (1.4-4.0); Lymphocytes % 31.9 % (21.2-54.2); Mean Corpuscular Volume 95.6 FL (87-102); Mean Platelet Volume 9.8 FL (9.6-12.0); Monocytes # 0.6 10*3/uL (0.11-0.8); Monocytes % 6.8 % (1.7-12.7); Neutrophils % 58.4 % (38.7-73.9); Platelet Count 355 T/CUMM (130-400); Red Cell Distribution Width 15.2 % (9.3-17.3); White Blood Count 8.5 T/CUMM (4-12)
[2022-01-25 09:04] LABS: Calcium 8.3 MG/DL (8.5-10.1); Osmolality,Calculated 280.5 MOS/KG (273-304); Potassium 3.9 MMOL/L (3.5-5.1)
[2022-01-25] MEDS: atenoloL 50 MG TABLET PO SCH (09:25)
[2022-01-25] MEDS: SULFAMETHOX/TRIMETHOPRIM 800-160 MG TABLET PO SCH ×2 (09:25→22:01)
[2022-01-25] MEDS: ATORVASTATIN 40 MG TABLET PO SCH (09:25)
[2022-01-25] MEDS: ASCORBIC ACID 500 MG TABLET PO SCH ×2 (09:25→22:02)
[2022-01-25] MEDS: ASPIRIN 325 MG TABLET PO SCH (09:25)
[2022-01-25] MEDS: ENOXAPARIN 40 MG/0.4 ML SYRINGE SUBCUT SCH (09:26)
[2022-01-25] MEDS: PANTOPRAZOLE 40 MG VIAL IV SCH (09:26)
[2022-01-25] MEDS: amLODIPine 10 MG TABLET PO SCH (10:03)
[2022-01-25] MEDS: LACTATED RINGERS 1,000 ML IV SCH (10:06)
[2022-01-25] MEDS: MUPIROCIN 2% OINT 22 GM TUBE TOP SCH ×2 (17:25→22:01)
[2022-01-26] MEDS: ALBUTEROL/IPRATROPIUM 3 ML NEB RESP TX SCH ×4 (00:34→19:47)
[2022-01-26] MEDS: LACTATED RINGERS 1,000 ML IV SCH ×2 (01:36→12:33)
[2022-01-26] MEDS: INSULIN REGULAR 100 UNIT/ML SUBCUT SCH ×4 (07:32→21:37)
[2022-01-26 08:06] LABS: Basophils # 0.1 10*3/uL (0.0-0.2); Basophils % 0.9 % (0.0-0.8); Eosinophils # 0.1 10*3/uL (0.0-0.87); Eosinophils % 0.7 % (0.00-10.9); Hematocrit 23.1 VOL% (42.0-52.0); Hemoglobin 7.2 GM/DL (14.0-18.0); Immature Granulocytes % 0.8 %; Immature Granulocytes Absolute 0.07 #; Lymphocytes % 34.6 % (21.2-54.2); Mean Corpuscular HGB Conc 31.2 GM/DL (32-36); Mean Corpuscular Volume 94.7 FL (87-102); Mean Platelet Volume 9.6 FL (9.6-12.0); Monocytes # 0.5 10*3/uL (0.11-0.8); Monocytes % 5.6 % (1.7-12.7); Neutrophils % 57.4 % (38.7-73.9); Platelet Count 330 T/CUMM (130-400); Red Blood Count 2.44 MC/CUMM (3.8-5.5); Red Cell Distribution Width 15.2 % (9.3-17.3); White Blood Count 8.5 T/CUMM (4-12)
[2022-01-26 08:20] LABS: Calcium 8.4 MG/DL (8.5-10.1); Osmolality,Calculated 279.5 MOS/KG (273-304)
[2022-01-26] MEDS: atenoloL 50 MG TABLET PO SCH (08:34)
[2022-01-26] MEDS: SULFAMETHOX/TRIMETHOPRIM 800-160 MG TABLET PO SCH (08:34)
[2022-01-26] MEDS: ATORVASTATIN 40 MG TABLET PO SCH (08:34)
[2022-01-26] MEDS: amLODIPine 10 MG TABLET PO SCH (08:34)
[2022-01-26] MEDS: DOCUSATE SODIUM 100 MG CAPSULE PO SCH ×2 (08:34→21:37)
[2022-01-26] MEDS: ONDANSETRON 4 MG/2 ML VIAL IV PRN (08:35)
[2022-01-26] MEDS: ENOXAPARIN 40 MG/0.4 ML SYRINGE SUBCUT SCH (08:35)
[2022-01-26] MEDS: ASCORBIC ACID 500 MG TABLET PO SCH ×2 (08:35→21:37)
[2022-01-26] MEDS: ASPIRIN 325 MG TABLET PO SCH (08:36)
[2022-01-26] MEDS: PANTOPRAZOLE 40 MG VIAL IV SCH (08:36)
[2022-01-26] MEDS: MUPIROCIN 2% OINT 22 GM TUBE TOP SCH ×2 (08:42→21:00)
[2022-01-26] MEDS: POLYETHYLENE GLYCOL POWDER 17 GM PACK PO SCH (08:46)
[2022-01-26] MEDS: LINEZOLID 600 MG TABLET PO SCH (21:37)
[2022-01-27] MEDS: ALBUTEROL/IPRATROPIUM 3 ML NEB RESP TX SCH ×4 (00:01→19:15)
[2022-01-27] MEDS: LACTATED RINGERS 1,000 ML IV SCH (04:44)
[2022-01-27 05:33] LABS: Basophils % 0.5 % (0.0-0.8); Eosinophils % 0.2 % (0.00-10.9); Hematocrit 23.1 VOL% (42.0-52.0); Hemoglobin 7.1 GM/DL (14.0-18.0); Immature Granulocytes % 0.7 %; Immature Granulocytes Absolute 0.06 #; Mean Corpuscular HGB Conc 30.7 GM/DL (32-36); Mean Corpuscular Volume 95.1 FL (87-102); Mean Platelet Volume 10.5 FL (9.6-12.0); Monocytes # 0.4 10*3/uL (0.11-0.8); Monocytes % 4.6 % (1.7-12.7); Platelet Count 323 T/CUMM (130-400); Red Blood Count 2.43 MC/CUMM (3.8-5.5); Red Cell Distribution Width 15.3 % (9.3-17.3)
[2022-01-27 05:51] LABS: Calcium 8.3 MG/DL (8.5-10.1); Osmolality,Calculated 286.4 MOS/KG (273-304); Potassium 4.6 MMOL/L (3.5-5.1)
[2022-01-27] MEDS: INSULIN REGULAR 100 UNIT/ML SUBCUT SCH ×4 (07:57→20:50)
[2022-01-27] MEDS ORDERED: SODIUM CHLORIDE 0.9% 1,000 ML IV PRN (09:31)
[2022-01-27] MEDS ORDERED: FUROSEMIDE 20 MG/2 ML VIAL IV PRN (09:33)
[2022-01-27] MEDS: POLYETHYLENE GLYCOL POWDER 17 GM PACK PO SCH (09:36)
[2022-01-27] MEDS: ENOXAPARIN 40 MG/0.4 ML SYRINGE SUBCUT SCH (09:37)
[2022-01-27] MEDS: ASCORBIC ACID 500 MG TABLET PO SCH ×2 (09:37→20:46)
[2022-01-27] MEDS: ATORVASTATIN 40 MG TABLET PO SCH (09:37)
[2022-01-27] MEDS: amLODIPine 10 MG TABLET PO SCH (09:37)
[2022-01-27] MEDS: ASPIRIN 325 MG TABLET PO SCH (09:37)
[2022-01-27] MEDS: PANTOPRAZOLE 40 MG VIAL IV SCH (09:37)
[2022-01-27] MEDS: LINEZOLID 600 MG TABLET PO SCH ×2 (09:38→20:45)
[2022-01-27] MEDS: atenoloL 50 MG TABLET PO SCH (09:38)
[2022-01-27] MEDS: DOCUSATE SODIUM 100 MG CAPSULE PO SCH ×2 (09:38→20:45)
[2022-01-27] MEDS: MUPIROCIN 2% OINT 22 GM TUBE TOP SCH ×2 (09:39→21:00)
[2022-01-27] MEDS ORDERED: TUBERCULIN SKIN TEST 0.1 ML SYRINGE INTRADERM ONE (15:42)
[2022-01-28] MEDS: ALBUTEROL/IPRATROPIUM 3 ML NEB RESP TX SCH ×2 (00:10→07:20)
[2022-01-28 08:00] LABS: Basophils # 0.1 10*3/uL (0.0-0.2); Basophils % 0.8 % (0.0-0.8); Eosinophils % 0.5 % (0.00-10.9); Hematocrit 26.2 VOL% (42.0-52.0); Hemoglobin 8.3 GM/DL (14.0-18.0); Immature Granulocytes % 1.1 %; Lymphocytes # 2.8 10*3/uL (1.4-4.0); Lymphocytes % 31.7 % (21.2-54.2); Mean Corpuscular HGB Conc 31.7 GM/DL (32-36); Mean Corpuscular Volume 92.3 FL (87-102); Mean Platelet Volume 10.1 FL (9.6-12.0); Monocytes # 0.5 10*3/uL (0.11-0.8); Monocytes % 5.6 % (1.7-12.7); NRBC # 0.05 10*3/uL; Neutrophils % 60.3 % (38.7-73.9); Platelet Count 343 T/CUMM (130-400); Red Blood Count 2.84 MC/CUMM (3.8-5.5); Red Cell Distribution Width 16.1 % (9.3-17.3); White Blood Count 8.7 T/CUMM (4-12)
[2022-01-28] MEDS: INSULIN REGULAR 100 UNIT/ML SUBCUT SCH ×2 (08:10→15:18)
[2022-01-28 08:21] LABS: Calcium 8.4 MG/DL (8.5-10.1); Osmolality,Calculated 288.3 MOS/KG (273-304); Potassium 4.6 MMOL/L (3.5-5.1)
[2022-01-28] MEDS: DOCUSATE SODIUM 100 MG CAPSULE PO SCH (10:40)
[2022-01-28] MEDS: MUPIROCIN 2% OINT 22 GM TUBE TOP SCH (10:40)
[2022-01-28] MEDS: ASPIRIN 325 MG TABLET PO SCH (10:40)
[2022-01-28] MEDS: amLODIPine 10 MG TABLET PO SCH (10:41)
[2022-01-28] MEDS: PANTOPRAZOLE 40 MG VIAL IV SCH (10:41)
[2022-01-28] MEDS: atenoloL 50 MG TABLET PO SCH (10:41)
[2022-01-28] MEDS: ATORVASTATIN 40 MG TABLET PO SCH (10:41)
[2022-01-28] MEDS: POLYETHYLENE GLYCOL POWDER 17 GM PACK PO SCH (10:41)
[2022-01-28] MEDS: ENOXAPARIN 40 MG/0.4 ML SYRINGE SUBCUT SCH (10:41)
[2022-01-28] MEDS: LINEZOLID 600 MG TABLET PO SCH (10:42)
[2022-01-28] MEDS: ASCORBIC ACID 500 MG TABLET PO SCH (10:42)
[2022-01-28] MEDS ORDERED: FUROSEMIDE 40 MG/4 ML VIAL IV ONE (12:00)
[2022-01-28 12:30] VITALS: BP 108/49
[2022-01-28] MEDS ORDERED: FUROSEMIDE 20 MG/2 ML VIAL IV ONE (14:37)
[2022-01-28] MEDS ORDERED: MORPHINE 2 MG/1 ML SYRINGE IV ONE (14:37)
== END 2022-01-28 16:00 | DRG 239 ==
LOC: N.ED 11:30 → N.EDINP 11:30 → SUATTDRO 12:34 → N.5E 15:10 → SUATTDRO 01-06 14:20
PROVIDERS: ADMIT Internal Medicine Geriatric Medicine; ATTEND Internal Medicine

== ENCOUNTER 2022-02-12 01:38 | Inpatient (IN) ==
[2022-02-12 02:09] LABS: Basophils % 0.4 % (0.0-0.8); Eosinophils % 0.1 % (0.00-10.9); Hemoglobin 7.9 GM/DL (14.0-18.0); Immature Granulocytes % 0.7 %; Immature Granulocytes Absolute 0.06 #; Lymphocytes # 1.4 10*3/uL (1.4-4.0); Lymphocytes % 17.1 % (21.2-54.2); Mean Corpuscular HGB Conc 31.6 GM/DL (32-36); Mean Corpuscular Volume 94.7 FL (87-102); Mean Platelet Volume 11.6 FL (9.6-12.0); Monocytes # 0.4 10*3/uL (0.11-0.8); Monocytes % 4.9 % (1.7-12.7); NRBC # 0.08 10*3/uL; Neutrophils % 76.8 % (38.7-73.9); Platelet Count 146 T/CUMM (130-400); Red Blood Count 2.64 MC/CUMM (3.8-5.5); Red Cell Distribution Width 17.7 % (9.3-17.3); White Blood Count 8.4 T/CUMM (4-12)
[2022-02-12 02:31] LABS: Albumin 1.8 G/DL (3.4-5.0); Bilirubin,Total 0.5 MG/DL (0.20-1.00); Calcium 7.9 MG/DL (8.5-10.1); Osmolality,Calculated 284.8 MOS/KG (273-304); Total Protein 6.8 G/DL (6.4-8.2)
[2022-02-12] MEDS ORDERED: DEXTROSE 50% 25 GM/50 ML SYRINGE IV ONE ×2 (02:51→05:28)
[2022-02-12] MEDS ORDERED: DEXTROSE 50% 25 GM/50 ML VIAL IV STA ×2 (02:56→05:26)
[2022-02-12] MEDS ORDERED: DEXTROSE 5% NACL 0.45% 1,000 ML IV STA (03:00)
[2022-02-12] MEDS ORDERED: DEXTROSE 50% 25 GM/50 ML SYRINGE IV STA ×2 (03:01→05:40)
[2022-02-12] MEDS ORDERED: DEXTROSE 5% NACL 0.45% 1,000 ML IV SCH ×2 (03:10→05:00)
[2022-02-12] MEDS ORDERED: VANCOMYCIN INJ 1,000 MG in SODIUM CHLORIDE 0.9% 250 ML IV STA (03:13)
[2022-02-12] MEDS ORDERED: PIPERACILLIN/TAZOBACTAM 3,375 MG in SODIUM CHLORIDE 0.9% 100 ML IV STA (03:13)
[2022-02-12] MEDS ORDERED: SODIUM CHLORIDE 0.9% 1,000 ML IV STA (04:20)
[2022-02-12] MEDS ORDERED: DEXTROSE 10% 250 ML BAG IV PRN (04:46)
[2022-02-12] MEDS ORDERED: ALBUTEROL 2.5 MG/3 ML NEB RESP TX PRN (04:46)
[2022-02-12] MEDS ORDERED: MORPHINE 2 MG/1 ML SYRINGE IV PRN (04:46)
[2022-02-12] MEDS ORDERED: GLUCAGON 1 MG VIAL IM PRN (04:46)
[2022-02-12] MEDS ORDERED: hydrALAZINE 20 MG/1 ML VIAL IV PRN (04:46)
[2022-02-12] MEDS ORDERED: ACETAMINOPHEN 325 MG TABLET PO PRN (04:46)
[2022-02-12] MEDS: DEXTROSE 10% 1,000 ML IV SCH ×2 (06:00→18:08)
[2022-02-12] MEDS ORDERED: SODIUM CHLORIDE 0.9% 2,500 ML IV STA (06:05)
[2022-02-12] MEDS ORDERED: SODIUM CHLORIDE 0.9% 1,500 ML IV STA (06:08)
[2022-02-12] MEDS: HYDROCORTISONE 100 MG VIAL IV SCH ×3 (06:40→21:13)
[2022-02-12] MEDS: INSULIN LISPRO 100 UNIT/ML SUBCUT SCH ×4 (07:44→21:13)
[2022-02-12] MEDS ORDERED: SODIUM BICARBONATE 50 MEQ/50 ML VIAL IV ONE (08:28)
[2022-02-12 08:31] LABS: Arterial Base Excess iSTAT -15 MMOL/L (-2.5-2.5); Arterial Bicarbonate iSTAT 12.4 MMOL/L (20-26); Arterial O2 Saturation iSTAT 93 % (95-100); Arterial PCO2 iSTAT 33 MM HG (35-48); Arterial PO2 iSTAT 80 MM HG (80-95); Arterial Total CO2 iSTAT 13 MMO/L (23-27); Arterial pH iSTAT 7.187 (7.35-7.45)
[2022-02-12] MEDS: ONDANSETRON 4 MG/2 ML VIAL IV PRN (08:50)
[2022-02-12] MEDS: PANTOPRAZOLE 40 MG VIAL IV SCH (08:52)
[2022-02-12] MEDS ORDERED: PANTOPRAZOLE 40 MG TABLET PO SCH (09:00)
[2022-02-12] MEDS: ASCORBIC ACID 500 MG TABLET PO SCH ×2 (09:02→21:13)
[2022-02-12] MEDS: ATORVASTATIN 40 MG TABLET PO SCH (09:02)
[2022-02-12] MEDS: allopurinoL 100 MG TABLET PO SCH (09:02)
[2022-02-12] MEDS: ASPIRIN 325 MG TABLET PO SCH (09:02)
[2022-02-12 09:15] LABS: Basophils % 0.2 % (0.0-0.8); Hematocrit 24.8 VOL% (42.0-52.0); Hemoglobin 7.7 GM/DL (14.0-18.0); Immature Granulocytes % 0.9 %; Lymphocytes # 2.3 10*3/uL (1.4-4.0); Lymphocytes % 20.3 % (21.2-54.2); Mean Corpuscular Volume 96.5 FL (87-102); Mean Platelet Volume 11.2 FL (9.6-12.0); Monocytes # 0.5 10*3/uL (0.11-0.8); Monocytes % 4.6 % (1.7-12.7); NRBC # 0.13 10*3/uL; Platelet Count 145 T/CUMM (130-400); Red Blood Count 2.57 MC/CUMM (3.8-5.5); Red Cell Distribution Width 17.9 % (9.3-17.3); White Blood Count 11.5 T/CUMM (4-12)
[2022-02-12 09:34] LABS: Band Neutrophils 7 % (0-10); Eosinophils 1 % (0-10); Lymphocytes 20 % (20-55); Nucleated Red Blood Cells 1 /100 WBC (0-5); Platelet Estimate Adequate; Total Cells Counted 100
[2022-02-12 09:35] LABS: Anisocytosis 3+; Burr Cells Few; Macrocytosis 1+
[2022-02-12 09:36] LABS: Osmolality,Calculated 284.8 MOS/KG (273-304); Potassium 4.7 MMOL/L (3.5-5.1)
[2022-02-12] MEDS ORDERED: SODIUM CHLORIDE 0.9% 1,000 ML IV PRN (09:52)
[2022-02-12] MEDS: ALBUTEROL/IPRATROPIUM 3 ML NEB RESP TX SCH ×3 (11:30→19:03)
[2022-02-12] MEDS: PIPERACILLIN/TAZOBACTAM 3,375 MG in SODIUM CHLORIDE 0.9% 100 ML IV SCH ×2 (12:00→21:13)
[2022-02-12 14:59] LABS: Hematocrit 25.3 VOL% (42.0-52.0); Hemoglobin 8.1 GM/DL (14.0-18.0)
[2022-02-12 15:13] LABS: Calcium 7.8 MG/DL (8.5-10.1); Osmolality,Calculated 283.8 MOS/KG (273-304); Potassium 4.9 MMOL/L (3.5-5.1)
[2022-02-12] MEDS ORDERED: ENOXAPARIN 40 MG/0.4 ML SYRINGE SUBCUT SCH (21:00)
[2022-02-13] MEDS: ALBUTEROL/IPRATROPIUM 3 ML NEB RESP TX SCH ×4 (00:37→19:26)
[2022-02-13 02:40] LABS: Albumin 1.7 G/DL (3.4-5.0); Bilirubin,Total 0.9 MG/DL (0.20-1.00); Calcium 8.1 MG/DL (8.5-10.1); Osmolality,Calculated 283.2 MOS/KG (273-304); Potassium 5.2 MMOL/L (3.5-5.1); Risk Ratio 2.78; Thyroid Stimulating Hormone 0.904 uIU/ml (0.358-3.74); Total Protein 6.6 G/DL (6.4-8.2)
[2022-02-13] MEDS: PIPERACILLIN/TAZOBACTAM 3,375 MG in SODIUM CHLORIDE 0.9% 100 ML IV SCH ×3 (04:38→20:22)
[2022-02-13] MEDS: DEXTROSE 10% 1,000 ML IV SCH ×2 (05:04→08:27)
[2022-02-13] MEDS: HYDROCORTISONE 100 MG VIAL IV SCH ×3 (05:26→21:54)
[2022-02-13] MEDS: VANCOMYCIN INJ 1,250 MG in SODIUM CHLORIDE 0.9% 250 ML IV SCH (05:26)
[2022-02-13 05:51] LABS: Basophils % 0.1 % (0.0-0.8); Hematocrit 24.7 VOL% (42.0-52.0); Hemoglobin 7.8 GM/DL (14.0-18.0); Immature Granulocytes % 0.5 %; Immature Granulocytes Absolute 0.04 #; Lymphocytes # 1.1 10*3/uL (1.4-4.0); Lymphocytes % 14.2 % (21.2-54.2); Mean Corpuscular HGB Conc 31.6 GM/DL (32-36); Mean Corpuscular Volume 95.7 FL (87-102); Mean Platelet Volume 11.7 FL (9.6-12.0); Monocytes # 0.3 10*3/uL (0.11-0.8); Monocytes % 3.8 % (1.7-12.7); NRBC # 0.04 10*3/uL; Neutrophils % 81.4 % (38.7-73.9); Platelet Count 106 T/CUMM (130-400); Red Blood Count 2.58 MC/CUMM (3.8-5.5); Red Cell Distribution Width 17.3 % (9.3-17.3)
[2022-02-13] MEDS: INSULIN LISPRO 100 UNIT/ML SUBCUT SCH ×6 (08:07→23:31)
[2022-02-13 08:26] LABS: Arterial Base Excess iSTAT -6 MMOL/L (-2.5-2.5); Arterial Bicarbonate iSTAT 17.9 MMOL/L (20-26); Arterial O2 Saturation iSTAT 96 % (95-100); Arterial PCO2 iSTAT 27 MM HG (35-48); Arterial PO2 iSTAT 76 MM HG (80-95); Arterial Total CO2 iSTAT 19 MMO/L (23-27); Arterial pH iSTAT 7.431 (7.35-7.45)
[2022-02-13] MEDS: PANTOPRAZOLE 40 MG VIAL IV SCH (08:50)
[2022-02-13] MEDS: ASPIRIN 325 MG TABLET PO SCH (08:54)
[2022-02-13] MEDS: allopurinoL 100 MG TABLET PO SCH (08:55)
[2022-02-13] MEDS: ASCORBIC ACID 500 MG TABLET PO SCH ×2 (08:55→20:21)
[2022-02-13] MEDS: ATORVASTATIN 40 MG TABLET PO SCH (08:55)
[2022-02-13] MEDS: SODIUM BICARB INJ 50 MEQ in DEXTROSE 5% NACL 0.45% 1,000 ML IV SCH ×2 (10:11→20:30)
[2022-02-13 15:29] LABS: Calcium 7.7 MG/DL (8.5-10.1); Osmolality,Calculated 293.8 MOS/KG (273-304); Potassium 4.9 MMOL/L (3.5-5.1)
[2022-02-13] MEDS ORDERED: MAGNESIUM SULF RIDER 4 GM/100 ML PREMIX IV ONE (16:00)
[2022-02-13] MEDS ORDERED: INSULIN LISPRO 100 UNIT/ML SUBCUT SCH (18:00)
[2022-02-13] MEDS ORDERED: ENOXAPARIN 30 MG/0.3 ML SYRINGE SUBCUT SCH (21:00)
[2022-02-14] MEDS: ALBUTEROL/IPRATROPIUM 3 ML NEB RESP TX SCH ×4 (00:02→19:09)
[2022-02-14 01:19] LABS: Basophils % 0.1 % (0.0-0.8); Hematocrit 25.8 VOL% (42.0-52.0); Immature Granulocytes % 0.6 %; Immature Granulocytes Absolute 0.05 #; Lymphocytes # 0.7 10*3/uL (1.4-4.0); Lymphocytes % 8.6 % (21.2-54.2); Mean Corpuscular Volume 96.6 FL (87-102); Mean Platelet Volume 12.4 FL (9.6-12.0); Monocytes # 0.5 10*3/uL (0.11-0.8); Monocytes % 6.1 % (1.7-12.7); NRBC # 0.05 10*3/uL; Neutrophils % 84.6 % (38.7-73.9); Platelet Count 112 T/CUMM (130-400); Red Blood Count 2.67 MC/CUMM (3.8-5.5); Red Cell Distribution Width 17.2 % (9.3-17.3); White Blood Count 8.2 T/CUMM (4-12)
[2022-02-14 01:46] LABS: Calcium 8.3 MG/DL (8.5-10.1); Osmolality,Calculated 281.4 MOS/KG (273-304); Potassium 4.1 MMOL/L (3.5-5.1)
[2022-02-14] MEDS: PIPERACILLIN/TAZOBACTAM 3,375 MG in SODIUM CHLORIDE 0.9% 100 ML IV SCH (03:30)
[2022-02-14] MEDS: INSULIN LISPRO 100 UNIT/ML SUBCUT SCH ×6 (03:35→22:32)
[2022-02-14] MEDS: VANCOMYCIN INJ 1,250 MG in SODIUM CHLORIDE 0.9% 250 ML IV SCH (05:14)
[2022-02-14] MEDS: HYDROCORTISONE 100 MG VIAL IV SCH ×3 (05:32→23:16)
[2022-02-14] MEDS: SODIUM BICARB INJ 50 MEQ in DEXTROSE 5% NACL 0.45% 1,000 ML IV SCH (07:37)
[2022-02-14] MEDS: MEROPENEM 500 MG in SODIUM CHLORIDE 0.9% 100 ML IV SCH ×3 (08:37→23:16)
[2022-02-14] MEDS: ASPIRIN 325 MG TABLET PO SCH (08:38)
[2022-02-14] MEDS: ASCORBIC ACID 500 MG TABLET PO SCH ×2 (08:38→20:19)
[2022-02-14] MEDS: allopurinoL 100 MG TABLET PO SCH (08:38)
[2022-02-14] MEDS: PANTOPRAZOLE 40 MG VIAL IV SCH (08:38)
[2022-02-14] MEDS: ATORVASTATIN 40 MG TABLET PO SCH (08:39)
[2022-02-14] MEDS: ONDANSETRON 4 MG/2 ML VIAL IV PRN (09:01)
[2022-02-14] MEDS ORDERED: oxyCODONE/ACETAMINOPHEN 5-325 MG TABLET PO PRN (09:12)
[2022-02-14] MEDS: FONDAPARINUX 2.5 MG/0.5 ML SYRINGE SUBCUT SCH (20:18)
[2022-02-15] MEDS: ALBUTEROL/IPRATROPIUM 3 ML NEB RESP TX SCH ×4 (01:16→20:30)
[2022-02-15 04:06] LABS: Hematocrit 23.5 VOL% (42.0-52.0); Hemoglobin 7.5 GM/DL (14.0-18.0); Immature Granulocytes % 0.9 %; Immature Granulocytes Absolute 0.07 #; Lymphocytes # 0.7 10*3/uL (1.4-4.0); Lymphocytes % 9.9 % (21.2-54.2); Mean Corpuscular HGB Conc 31.9 GM/DL (32-36); Mean Corpuscular Volume 92.5 FL (87-102); Mean Platelet Volume 11.8 FL (9.6-12.0); Monocytes # 0.5 10*3/uL (0.11-0.8); Monocytes % 6.6 % (1.7-12.7); NRBC # 0.13 10*3/uL; Neutrophils % 82.6 % (38.7-73.9); Platelet Count 115 T/CUMM (130-400); Red Blood Count 2.54 MC/CUMM (3.8-5.5); White Blood Count 7.4 T/CUMM (4-12)
[2022-02-15 04:22] LABS: Albumin 1.8 G/DL (3.4-5.0); Bilirubin,Total 0.7 MG/DL (0.20-1.00); Calcium 8.4 MG/DL (8.5-10.1); Osmolality,Calculated 287.1 MOS/KG (273-304); Total Protein 6.3 G/DL (6.4-8.2)
[2022-02-15] MEDS: SODIUM BICARB INJ 50 MEQ in DEXTROSE 5% NACL 0.45% 1,000 ML IV SCH (04:56)
[2022-02-15] MEDS: VANCOMYCIN INJ 1,250 MG in SODIUM CHLORIDE 0.9% 250 ML IV SCH (05:00)
[2022-02-15] MEDS: ONDANSETRON 4 MG/2 ML VIAL IV PRN (08:27)
[2022-02-15] MEDS: INSULIN LISPRO 100 UNIT/ML SUBCUT SCH ×4 (08:28→20:18)
[2022-02-15] MEDS: MEROPENEM 500 MG in SODIUM CHLORIDE 0.9% 100 ML IV SCH ×3 (08:28→23:21)
[2022-02-15] MEDS: ASCORBIC ACID 500 MG TABLET PO SCH ×2 (08:29→20:16)
[2022-02-15] MEDS: allopurinoL 100 MG TABLET PO SCH (08:29)
[2022-02-15] MEDS: ASPIRIN 325 MG TABLET PO SCH (08:29)
[2022-02-15] MEDS: PANTOPRAZOLE 40 MG TABLET PO SCH (08:29)
[2022-02-15] MEDS: ATORVASTATIN 40 MG TABLET PO SCH (08:29)
[2022-02-15] MEDS: HYDROCORTISONE 100 MG VIAL IV SCH ×2 (12:18→23:21)
[2022-02-15] MEDS: ZINC OXIDE PASTE 113 GM TUBE TOP SCH ×2 (16:16→20:16)
[2022-02-15] MEDS: FONDAPARINUX 2.5 MG/0.5 ML SYRINGE SUBCUT SCH (20:16)
[2022-02-16] MEDS: ALBUTEROL/IPRATROPIUM 3 ML NEB RESP TX SCH ×4 (00:22→19:24)
[2022-02-16] MEDS: SODIUM BICARB INJ 50 MEQ in DEXTROSE 5% NACL 0.45% 1,000 ML IV SCH (02:06)
[2022-02-16 04:21] LABS: Eosinophils % 0.1 % (0.00-10.9); Hematocrit 23.1 VOL% (42.0-52.0); Hemoglobin 7.5 GM/DL (14.0-18.0); Immature Granulocytes Absolute 0.09 #; Lymphocytes # 1.8 10*3/uL (1.4-4.0); Lymphocytes % 19.9 % (21.2-54.2); Mean Corpuscular HGB Conc 32.5 GM/DL (32-36); Mean Corpuscular Volume 91.3 FL (87-102); Mean Platelet Volume 12.4 FL (9.6-12.0); Monocytes # 0.8 10*3/uL (0.11-0.8); Monocytes % 8.6 % (1.7-12.7); NRBC # 0.29 10*3/uL; Neutrophils % 70.4 % (38.7-73.9); Platelet Count 154 T/CUMM (130-400); Red Blood Count 2.53 MC/CUMM (3.8-5.5); Red Cell Distribution Width 17.1 % (9.3-17.3); White Blood Count 8.9 T/CUMM (4-12)
[2022-02-16 04:33] LABS: Calcium 8.3 MG/DL (8.5-10.1); Osmolality,Calculated 290.5 MOS/KG (273-304); Potassium 3.8 MMOL/L (3.5-5.1)
[2022-02-16] MEDS: VANCOMYCIN INJ 1,250 MG in SODIUM CHLORIDE 0.9% 250 ML IV SCH (06:00)
[2022-02-16] MEDS: INSULIN LISPRO 100 UNIT/ML SUBCUT SCH ×4 (07:45→20:33)
[2022-02-16] MEDS: MEROPENEM 500 MG in SODIUM CHLORIDE 0.9% 100 ML IV SCH ×3 (07:49→23:34)
[2022-02-16] MEDS: SODIUM HYPOCHLORITE 0.25% IRRIG 473 ML BOTTLE TOP SCH (07:50)
[2022-02-16] MEDS: ASPIRIN 325 MG TABLET PO SCH (09:55)
[2022-02-16] MEDS: allopurinoL 100 MG TABLET PO SCH (09:55)
[2022-02-16] MEDS: ATORVASTATIN 40 MG TABLET PO SCH (09:56)
[2022-02-16] MEDS: ASCORBIC ACID 500 MG TABLET PO SCH ×2 (09:56→20:33)
[2022-02-16] MEDS: HYDROCORTISONE 10 MG TABLET PO SCH ×2 (09:56→20:33)
[2022-02-16] MEDS: PANTOPRAZOLE 40 MG TABLET PO SCH (09:56)
[2022-02-16] MEDS: ZINC OXIDE PASTE 113 GM TUBE TOP SCH ×2 (09:56→20:33)
[2022-02-16] MEDS: FONDAPARINUX 2.5 MG/0.5 ML SYRINGE SUBCUT SCH (20:32)
[2022-02-16] MEDS ORDERED: DEXTROSE 50% 25 GM/50 ML SYRINGE IV ONE ×2 (20:55→20:56)
[2022-02-16] MEDS: DEXTROSE 5% NACL 0.45% 1,000 ML IV SCH (21:41)
[2022-02-17] MEDS: ALBUTEROL/IPRATROPIUM 3 ML NEB RESP TX SCH ×4 (00:35→19:17)
[2022-02-17 03:38] LABS: Basophils % 0.2 % (0.0-0.8); Eosinophils % 0.3 % (0.00-10.9); Hemoglobin 7.5 GM/DL (14.0-18.0); Immature Granulocytes % 3.6 %; Immature Granulocytes Absolute 0.37 #; Lymphocytes % 19.3 % (21.2-54.2); Mean Corpuscular HGB Conc 32.6 GM/DL (32-36); Mean Corpuscular Volume 93.9 FL (87-102); Mean Platelet Volume 12.2 FL (9.6-12.0); Monocytes # 0.9 10*3/uL (0.11-0.8); Monocytes % 8.2 % (1.7-12.7); NRBC # 0.68 10*3/uL; Neutrophils % 68.4 % (38.7-73.9); Platelet Count 142 T/CUMM (130-400); Red Blood Count 2.45 MC/CUMM (3.8-5.5); Red Cell Distribution Width 17.2 % (9.3-17.3); White Blood Count 10.4 T/CUMM (4-12)
[2022-02-17 04:10] LABS: Calcium 8.9 MG/DL (8.5-10.1); Osmolality,Calculated 290.8 MOS/KG (273-304); Potassium 4.6 MMOL/L (3.5-5.1)
[2022-02-17] MEDS: INSULIN LISPRO 100 UNIT/ML SUBCUT SCH ×3 (08:00→16:20)
[2022-02-17] MEDS: ATORVASTATIN 40 MG TABLET PO SCH (09:32)
[2022-02-17] MEDS: ASPIRIN 325 MG TABLET PO SCH (09:33)
[2022-02-17] MEDS: ASCORBIC ACID 500 MG TABLET PO SCH ×2 (09:33→20:17)
[2022-02-17] MEDS: ZINC OXIDE PASTE 113 GM TUBE TOP SCH ×2 (09:33→20:18)
[2022-02-17] MEDS: PANTOPRAZOLE 40 MG TABLET PO SCH (09:33)
[2022-02-17] MEDS: allopurinoL 100 MG TABLET PO SCH (09:33)
[2022-02-17] MEDS: HYDROCORTISONE 10 MG TABLET PO SCH (09:33)
[2022-02-17] MEDS: MEROPENEM 500 MG in SODIUM CHLORIDE 0.9% 100 ML IV SCH ×2 (09:33→16:59)
[2022-02-17] MEDS: DEXTROSE 5% NACL 0.45% 1,000 ML IV SCH (09:48)
[2022-02-17] MEDS ORDERED: FUROSEMIDE 100 MG/10 ML VIAL IV ONE (10:37)
[2022-02-17] MEDS: SODIUM HYPOCHLORITE 0.25% IRRIG 473 ML BOTTLE TOP SCH (11:55)
[2022-02-17] MEDS: HYDROCORTISONE 100 MG VIAL IV SCH ×2 (16:55→23:03)
[2022-02-17] MEDS: FLUDROCORTISONE 0.1 MG TABLET PO SCH (16:59)
[2022-02-17] MEDS ORDERED: DEXTROSE 10% 1,000 ML IV SCH (17:00)
[2022-02-17] MEDS: FONDAPARINUX 2.5 MG/0.5 ML SYRINGE SUBCUT SCH (20:18)
[2022-02-17] MEDS: ONDANSETRON 4 MG/2 ML VIAL IV PRN (20:31)
[2022-02-18] MEDS: ALBUTEROL/IPRATROPIUM 3 ML NEB RESP TX SCH ×5 (00:14→23:56)
[2022-02-18] MEDS: MEROPENEM 500 MG in SODIUM CHLORIDE 0.9% 100 ML IV SCH ×3 (00:38→17:20)
[2022-02-18] MEDS: ONDANSETRON 4 MG/2 ML VIAL IV PRN ×2 (02:30→12:00)
[2022-02-18 03:24] LABS: Glucose,Urine (UA) Negative (Negative); Hyaline Casts,Urine 28 /LPF (0-3); Ketones,Urine Trace mg/dL (Negative); Mucus,Urine Occasional /LPF (Occasional); Nitrite,Urine Negative (Negative); Protein,Urine 30 mg/dL (Negative); RBC,Urine 1 /HPF (0-4); Squamous Epithelial Cell,Urine Occasional /HPF (0-10); Urine Appearance Clear (Clear); Urine Color Yellow (Yellow)
[2022-02-18 03:25] LABS: Bilirubin,Urine Negative (Negative); Blood, Urine Negative (Negative)
[2022-02-18 03:34] LABS: Calcium 8.6 MG/DL (8.5-10.1); Osmolality,Calculated 293.7 MOS/KG (273-304); Potassium 4.9 MMOL/L (3.5-5.1)
[2022-02-18] MEDS: HYDROCORTISONE 100 MG VIAL IV SCH ×4 (04:19→22:05)
[2022-02-18 04:26] LABS: Basophils % 0.2 % (0.0-0.8); Eosinophils % 0.1 % (0.00-10.9); Hematocrit 22.9 VOL% (42.0-52.0); Hemoglobin 7.4 GM/DL (14.0-18.0); Immature Granulocytes Absolute 1.49 #; Lymphocytes # 1.4 10*3/uL (1.4-4.0); Lymphocytes % 9.3 % (21.2-54.2); Mean Corpuscular HGB Conc 32.3 GM/DL (32-36); Mean Corpuscular Volume 94.6 FL (87-102); Monocytes # 1.1 10*3/uL (0.11-0.8); Monocytes % 7.4 % (1.7-12.7); NRBC # 2.87 10*3/uL; Platelet Count 165 T/CUMM (130-400); Red Blood Count 2.42 MC/CUMM (3.8-5.5); Red Cell Distribution Width 17.4 % (9.3-17.3); White Blood Count 14.9 T/CUMM (4-12)
[2022-02-18 04:51] LABS: Albumin 1.8 G/DL (3.4-5.0); Bilirubin,Direct 2.06 MG/DL (0.0-0.20); Bilirubin,Indirect 0.2 MG/DL (0.0-1.0); Bilirubin,Total 2.3 MG/DL (0.20-1.00); Total Protein 5.9 G/DL (6.4-8.2)
[2022-02-18 04:58] LABS: Lymphocytes 7 % (20-55); Nucleated Red Blood Cells 31 /100 WBC (0-5); Total Cells Counted 100
[2022-02-18 04:59] LABS: Platelet Estimate Adequate
[2022-02-18] MEDS ORDERED: SODIUM CHLORIDE 0.9% 250 ML IV ONE ×2 (05:45→06:00)
[2022-02-18] MEDS ORDERED: SODIUM CHLORIDE 0.9% 1,000 ML IV SCH ×2 (06:01→06:30)
[2022-02-18] MEDS: SODIUM HYPOCHLORITE 0.25% IRRIG 473 ML BOTTLE TOP SCH (10:34)
[2022-02-18] MEDS: ZINC OXIDE PASTE 113 GM TUBE TOP SCH ×2 (10:34→21:17)
[2022-02-18] MEDS: ASPIRIN 325 MG TABLET PO SCH (10:34)
[2022-02-18] MEDS: ATORVASTATIN 40 MG TABLET PO SCH (10:35)
[2022-02-18] MEDS: FLUDROCORTISONE 0.1 MG TABLET PO SCH (10:35)
[2022-02-18] MEDS: ASCORBIC ACID 500 MG TABLET PO SCH ×2 (10:35→21:16)
[2022-02-18] MEDS: PANTOPRAZOLE 40 MG VIAL IV SCH (10:35)
[2022-02-18] MEDS: allopurinoL 100 MG TABLET PO SCH (10:37)
[2022-02-18] MEDS ORDERED: DEXTROSE 5% LACTATED RINGERS 1,000 ML IV SCH (12:00)
[2022-02-18] MEDS: SODIUM BICARB INJ 100 MEQ in DEXTROSE 5% 1,000 ML IV SCH (17:28)
[2022-02-18] MEDS ORDERED: LORazepam 2 MG/1 ML VIAL IV ONE (20:39)
[2022-02-18] MEDS: FONDAPARINUX 2.5 MG/0.5 ML SYRINGE SUBCUT SCH (21:16)
[2022-02-19] MEDS: SODIUM BICARB INJ 100 MEQ in DEXTROSE 5% 1,000 ML IV SCH ×4 (01:48→09:00)
[2022-02-19] MEDS: MEROPENEM 500 MG in SODIUM CHLORIDE 0.9% 100 ML IV SCH ×2 (01:52→08:08)
[2022-02-19 04:18] LABS: Basophils # 0.1 10*3/uL (0.0-0.2); Basophils % 0.4 % (0.0-0.8); Eosinophils % 0.1 % (0.00-10.9); Hematocrit 22.2 VOL% (42.0-52.0); Immature Granulocytes % 11.1 %; Immature Granulocytes Absolute 2.05 #; Lymphocytes # 1.9 10*3/uL (1.4-4.0); Lymphocytes % 10.2 % (21.2-54.2); Mean Corpuscular HGB Conc 31.5 GM/DL (32-36); Mean Corpuscular Volume 97.4 FL (87-102); Mean Platelet Volume 12.6 FL (9.6-12.0); Monocytes % 5.2 % (1.7-12.7); NRBC # 9.08 10*3/uL; Platelet Count 155 T/CUMM (130-400); Red Blood Count 2.28 MC/CUMM (3.8-5.5); Red Cell Distribution Width 18.1 % (9.3-17.3); White Blood Count 18.4 T/CUMM (4-12)
[2022-02-19 04:40] LABS: Albumin 1.8 G/DL (3.4-5.0); Bilirubin,Total 3.4 MG/DL (0.20-1.00); Calcium 8.4 MG/DL (8.5-10.1); Osmolality,Calculated 298.7 MOS/KG (273-304); Potassium 5.2 MMOL/L (3.5-5.1); Total Protein 5.7 G/DL (6.4-8.2)
[2022-02-19 04:45] LABS: Acanthocytes Few; Band Neutrophils 1 % (0-10); Lymphocytes 10 % (20-55); Macrocytosis Slight; Nucleated Red Blood Cells 52 /100 WBC (0-5); Platelet Estimate Adequate; Polychromasia Slight; Total Cells Counted 100
[2022-02-19 04:46] LABS: Burr Cells Slight
[2022-02-19] MEDS ORDERED: SODIUM POLYSTYRENE SULFATE 15 GM/60 ML BOTTLE PO ONE (04:51)
[2022-02-19] MEDS ORDERED: NOREPINEPHRINE 16 MG in SODIUM CHLORIDE 0.9% 234 ML IV PRN (06:07)
[2022-02-19] MEDS: HYDROCORTISONE 100 MG VIAL IV SCH ×4 (06:14→23:39)
[2022-02-19] MEDS: ALBUTEROL/IPRATROPIUM 3 ML NEB RESP TX SCH ×3 (07:20→19:37)
[2022-02-19] MEDS: FLUDROCORTISONE 0.1 MG TABLET PO SCH (08:09)
[2022-02-19] MEDS: allopurinoL 100 MG TABLET PO SCH (08:09)
[2022-02-19] MEDS: ASPIRIN 325 MG TABLET PO SCH (08:09)
[2022-02-19] MEDS: ATORVASTATIN 40 MG TABLET PO SCH (08:10)
[2022-02-19] MEDS: SODIUM HYPOCHLORITE 0.25% IRRIG 473 ML BOTTLE TOP SCH (08:10)
[2022-02-19] MEDS: ASCORBIC ACID 500 MG TABLET PO SCH ×2 (08:10→20:55)
[2022-02-19] MEDS: PANTOPRAZOLE 40 MG VIAL IV SCH (08:10)
[2022-02-19] MEDS: ZINC OXIDE PASTE 113 GM TUBE TOP SCH ×2 (08:11→20:55)
[2022-02-19 12:12] VITALS: BP 99/58
[2022-02-19 12:44] LABS: Arterial Base Excess iSTAT -19 MMOL/L (-2.5-2.5); Arterial Bicarbonate iSTAT 6.9 MMOL/L (20-26); Arterial O2 Saturation iSTAT 97 % (95-100); Arterial PCO2 iSTAT 17 MM HG (35-48); Arterial PO2 iSTAT 101 MM HG (80-95); Arterial Total CO2 iSTAT 7 MMO/L (23-27); Arterial pH iSTAT 7.207 (7.35-7.45)
[2022-02-19] MEDS ORDERED: SODIUM BICARBONATE 50 MEQ/50 ML VIAL IV ONE ×2 (14:20→14:29)
[2022-02-19] MEDS: LINEZOLID INJ 600 MG/300 ML PREMIX IV SCH (14:27)
[2022-02-19] MEDS: SODIUM BICARB INJ 150 MEQ in DEXTROSE 5% 850 ML IV SCH ×2 (16:00→23:27)
[2022-02-19 19:19] LABS: Hematocrit 25.1 VOL% (42.0-52.0); Hemoglobin 7.8 GM/DL (14.0-18.0)
[2022-02-19] MEDS: FONDAPARINUX 2.5 MG/0.5 ML SYRINGE SUBCUT SCH (20:55)
[2022-02-19] MEDS ORDERED: MEROPENEM 500 MG in SODIUM CHLORIDE 0.9% 100 ML IV SCH (21:00)
[2022-02-20] MEDS: ALBUTEROL/IPRATROPIUM 3 ML NEB RESP TX SCH ×2 (00:15→07:31)
[2022-02-20] MEDS: SODIUM BICARB INJ 150 MEQ in DEXTROSE 5% 850 ML IV SCH ×2 (02:05→08:47)
[2022-02-20] MEDS: LINEZOLID INJ 600 MG/300 ML PREMIX IV SCH (03:39)
[2022-02-20 03:40] LABS: ABG Base Excess -16.2 MMOL/L (-2.5-2.5); ABG PH 7.304 (7.35-7.45); ABG PO2 88.4 MM HG (80-95); ABG TCO2 8.6 MMOL/L (23-27)
[2022-02-20 03:42] LABS: ABG PCO2 18.4 MM HG (35-48)
[2022-02-20 04:42] LABS: Basophils # 0.1 10*3/uL (0.0-0.2); Basophils % 0.4 % (0.0-0.8); Eosinophils # 0.1 10*3/uL (0.0-0.87); Eosinophils % 0.4 % (0.00-10.9); Hematocrit 24.7 VOL% (42.0-52.0); Hemoglobin 7.8 GM/DL (14.0-18.0); Immature Granulocytes % 11.3 %; Immature Granulocytes Absolute 2.24 #; Lymphocytes # 0.8 10*3/uL (1.4-4.0); Lymphocytes % 3.9 % (21.2-54.2); Mean Corpuscular HGB Conc 31.6 GM/DL (32-36); Mean Corpuscular Volume 96.5 FL (87-102); Mean Platelet Volume 12.9 FL (9.6-12.0); Monocytes # 0.6 10*3/uL (0.11-0.8); Monocytes % 3.1 % (1.7-12.7); NRBC # 17.47 10*3/uL; Neutrophils % 80.9 % (38.7-73.9); Red Blood Count 2.56 MC/CUMM (3.8-5.5); Red Cell Distribution Width 18.6 % (9.3-17.3); White Blood Count 19.8 T/CUMM (4-12)
[2022-02-20 04:43] LABS: Platelet Count 125 T/CUMM (130-400)
[2022-02-20 05:07] LABS: Albumin 1.7 G/DL (3.4-5.0); Bilirubin,Total 4.3 MG/DL (0.20-1.00); Calcium 8.1 MG/DL (8.5-10.1); Potassium 5.1 MMOL/L (3.5-5.1)
[2022-02-20 05:15] LABS: Acanthocytes Few; Anisocytosis Slight; Band Neutrophils 3 % (0-10); Lymphocytes 8 % (20-55); Macrocytosis Slight; Nucleated Red Blood Cells 132 /100 WBC (0-5); Platelet Estimate Normal; Total Cells Counted 100
[2022-02-20] MEDS: HYDROCORTISONE 100 MG VIAL IV SCH (06:11)
== END 2022-02-20 09:25 | disposition expired | DRG 871 ==
LOC: N.ED 01:38 → N.EDINP 04:39 → SUATTDRO 04:39 → N.CC 07:50
PROVIDERS: ADMIT Internal Medicine; ATTEND Internal Medicine